=== PATIENT | female | born 2000 | race Caucasian/White ===

== ENCOUNTER 2018-05-07 00:50 | Emergency (ER) | payer OTHER ==
[~2018-05-07 00:50] MED LIST: DXY100 PO
[2018-05-07 01:00] VITALS: TEMP 36.4
--- NOTE | 2018-05-07 01:28 | EMERGENCY ROOM VISIT NOTE ---
History Report prepared by Khurramibvalarie: Pancho Turner Under the Supervision of: Dr. Eulalia Ramon D.O. First contact with patient: 00:54 Chief Complaint: ALCOHOL OVERDOSE Stated Complaint: ALCOHOL OVERDOSE History of Present Illness HPI is limited due to altered mental state secondary to alcohol intoxication. The patient is a 17 year old female who presents to the Emergency Room via EMS due to a recent alcohol intoxication. Nurse states the patient was found in the bathroom of her friend's apartment after going out and drinking for 2 hours. Nurse states the patient was vomiting while she was sleeping in the bathroom. She denies the patient having any other injuries. Source of History: nursing staff History Limited By: AMS (alcohol intoxication) Onset: Recent Position: head Associated Symptoms: + vomiting Review of Systems See HPI for pertinent positives & negatives. A total of 10 systems reviewed and were otherwise negative. Past Medical & Surgical Past medical & surgical history is limited due to altered mental state secondary to alcohol intoxication. Family History Family history is limited due to altered mental state secondary to alcohol intoxication. Social History Smoking Status: Never Smoker Occupation Status: [employer] student Current/Historical Medications Unable to Obtain Active Prescriptions or Reported Meds Allergies Coded Allergies: Erythromycin (Verified Allergy, Mild, GI SYMPTOMS, 07/24/17) Penicillins (Verified Allergy, Unknown, RASH, 07/24/17) Physical Exam Vital Signs Date Time Temp Pulse Resp B/P (MAP) Pulse Ox O2 Delivery O2 Flow Rate FiO2 05/07/18 06:39 117 20 119/70 100 05/07/18 06:24 117 20 119/70 100 Room Air 05/07/18 05:01 72 14 100/62 96 Room Air 05/07/18 04:58 73 05/07/18 04:01 84 16 97/57 97 Room Air 05/07/18 03:01 87 19 118/72 99 Room Air 05/07/18 02:01 64 15 103/51 98 Room Air 05/07/18 01:02 65 05/07/18 01:01 61 22 113/65 96 05/07/18 01:00 Room Air 05/07/18 01:00 36.4 96 13 133/79 99 Room Air Physical Exam General: Patient is unresponsive and smells of alcohol. HEENT: Head - normocephalic and atraumatic Pupils are equal, round, pinpoint, and nonreactive to light. Extraocular eye muscles are intact, and sclera are anicteric. Nose - moist nasal mucosa without discharge. Neck: Supple; no JVD, nuchal rigidity, cervical lymphadenopathy. Heart: Regular rate and rhythm. There is a normal S1 and S2 with no murmurs, clicks, or gallops appreciated. Lungs: Clear to auscultation bilaterally with no wheezes, rales, or rhonchi. Abdomen: Soft, completely nontender, nondistended, with good bowel sounds. There are no palpable pulsatile masses or hepatosplenomegaly. There is no guarding, rigidity, or rebound noted. Extremities: No evidence of cyanosis, clubbing, or edema. There are easily palpable peripheral pulses. Skin: warm and dry with good turgor and no rashes. Medical Decision & Procedures Laboratory Results 05/07/18 01:32 Test 05/07/18 01:32 Anion Gap 12.0 mmol/L (3-11) Estimated GFR () 115.1 Estimated GFR (Non- 99.3 BUN/Creatinine Ratio 15.1 (10-20) Calcium Level 7.9 mg/dl (8.5-10.1) Ethyl Alcohol mg/dL 233.0 mg/dl (0-3) Laboratory results per my review. ED Course 0058: Past medical records reviewed. The patient was evaluated in room B12B. A complete history and physical exam was performed. The patient was placed in the prone position to avoid aspiration. They were observed on the youth nutritional monitor and pulse oximeter. Labs were drawn as above 0323: Patient is sleeping with stable vitals. 0623: Patient is sleeping with stable vitals. 0630: The nursing staff were able to arouse the patient. Upon reevaluation, the patient is fully awake. I went over the risks and hazards of such excessive alcohol use with her. I discussed findings and results with her. She verbalized agreement of the treatment plan. She was discharged home. Medical Decision The patient is a 17 year old female who presents to the ED with recent alcohol overdose. Differential diagnosis includes alcohol overdose, drug intoxication, hypoglycemia, and head injury. Lab results show alcohol = 233, glucose = 103, and potassium = 3.4. The patient was brought to the emergency department after consuming too much alcohol. There were no obvious signs of trauma or complaints of pain. They were observed closely throughout the night and remained stable while here in the ER. The patient was allowed time to sober up prior to discharge. I had a conversation with the patient about the hazards of such excessive alcohol use. Medication Reconcilliation Current Medication List: was personally reviewed by me Blood Pressure Screening Patient's blood pressure: Normal blood pressure Blood pressure disposition: Did not require urgent referral Impression Primary Impression: Alcohol overdose Scribe Attestation The scribe's documentation has been prepared under my direction and personally reviewed by me in its entirety. I confirm that the note above accurately reflects all work, treatment, procedures, and medical decision making performed by me. Departure Information Dispostion Home / Self-Care Prescriptions Unable to Obtain Active Prescriptions or Reported Meds Referrals No Doctor, Assigned (PCP) Forms HOME CARE DOCUMENTATION FORM, IMPORTANT VISIT INFORMATION Patient Instructions ED Overdose Alcohol, [facility]: [employer] Students and Alcohol Related Visits, My [facility] Additional Instructions Avoid such excessive alcohol use in the future. Tylenol 650 mg every 6 hours for headache. Drink plenty of fluids and take a bland diet today. Return to the emergency department for worsening symptoms or any medical concerns. Problem Qualifiers Primary Impression: Alcohol overdose Encounter type: initial encounter Injury intent: accidental or unintentional Qualified Codes: T51.91XA - Toxic effect of unspecified alcohol , accidental (unintentional), initial encounter
[2018-05-07 02:29] LABS: BLOOD UREA NITROGEN 13 mg/dl (7-18); CALCIUM 7.9 mg/dl (8.5-10.1); CARBON DIOXIDE 24 mmol/L (21-32); CREATININE 0.85 mg/dl (0.60-1.20); GLUCOSE 103 mg/dl (70-99); POTASSIUM 3.4 mmol/L (3.5-5.1); SODIUM 142 mmol/L (136-145)
[2018-05-07 06:39] VITALS: BP 119/70; PULSE 117; O2SAT 100
== END 2018-05-07 06:41 | disposition home or self-care (01) ==
LOC: EDBD 00:50 → C.EDB 00:51
DX: T51.91XA Toxic effect of unspecified alcohol, accidental (unintentional), initial encounter (principal); Z88.0 Allergy status to penicillin; Z88.1 Allergy status to other antibiotic agents

== ENCOUNTER 2021-01-21 20:08 | Inpatient (IN) ==
[2021-01-21] MEDS ORDERED: ACETAMINOPHEN 1,000 MG/100 ML VIAL IV STA (20:35)
[2021-01-21] MEDS ORDERED: SODIUM CHLORIDE 0.9% 1000ML 2,000 ML IV ONE (20:35)
[2021-01-21 20:58] LABS: Hematocrit (blood only) 33.8 % (37-47); Hemoglobin 11.6 g/dL (12.0-16.0); Mean Corpuscular Hemoglobin 30.3 pg (25-34); Mean Corpuscular Hgb Conc 34.3 g/dL (32-36); Mean Corpuscular Volume 88.3 fL (80-100); Mean Platelet Volume 11.1 fL (7.4-10.4); Platelet Count 207 K/uL (130-400); RDW Coefficient of Variation 12.8 % (11.5-14.5); RDW Standard Deviation 41.2 fL (36.4-46.3); Red Blood Count 3.83 M/uL (4.2-5.4); White Blood Count 30.05 K/uL (4.8-10.8)
[2021-01-21 21:09] LABS: Basophils # (auto) 0.02 K/uL (0-0.2); Basophils % (auto) 0.1 %; Eosinophils # (auto) 0.01 K/uL (0-0.5); Immature Granulocytes # (auto) 0.17 K/uL (0.00-0.02); Immature Granulocytes % (auto) 0.6 %; Lymphocytes # (auto) 1.08 K/uL (1.2-3.4); Lymphocytes % (auto) 3.6 %; Monocytes # (auto) 0.98 K/uL (0.11-0.59); Monocytes % (auto) 3.3 %; Neutrophils # (auto) 27.79 K/uL (1.4-6.5); Neutrophils % (auto) 92.4 %
[2021-01-21 21:13] LABS: Alanine Aminotransferase 25 U/L (12-78); Albumin Level 3.3 gm/dl (3.4-5.0); Aspartate Aminotransferase 26 U/L (15-37); BUN Creatinine Ratio 8.7 (10-20); Blood Urea Nitrogen 11 mg/dl (7-18); Carbon Dioxide 24 mmol/L (21-32); Chloride 98 mmol/L (98-107); Creatinine Clr Calc Pharmacy 62.5 ml/min; Est GFR (African American) 73.6; Est GFR (Non-African American) 63.5; Glucose 108 mg/dl (70-99); Lipase 38 U/L (73-393); Magnesium 1.9 mg/dl (1.8-2.4); Potassium 3.1 mmol/L (3.5-5.1); Sodium 131 mmol/L (136-145)
[2021-01-21 21:18] LABS: Albumin Globulin Ratio 0.8 (0.9-2); Alkaline Phosphatase 196 U/L (45-117); Bilirubin,Total 1.1 mg/dl (0.2-1); Globulin 4.1 gm/dl (2.5-4.0); Total Protein 7.4 gm/dl (6.4-8.2); Troponin I < 0.015 ng/ml (0-0.045)
[2021-01-21 21:31] LABS: INR 1.1 (0.9-1.1); Partial Thromboplastin Ratio 1.3; Partial Thromboplastin Time 33.5 Seconds (21.0-31.0); Prothrombin Time 11.5 Seconds (9.0-12.0)
[2021-01-21] MEDS ORDERED: OPTIRAY 300 100mL IV ONE (21:46)
[2021-01-21 21:47] LABS: D Dimer 2200 ug/L FEU (0-500)
[2021-01-21] MEDS ORDERED: SODIUM CHLORIDE 0.9% 1000ML 1,000 ML IV ONE (21:53)
[2021-01-21] MEDS ORDERED: AMPICILLIN/SULBACTAM SOD 3,000 MG in 0.9 % SODIUM CHLORIDE 100 ML IV STA (22:23)
[2021-01-21] MEDS ORDERED: CLINDAMYCIN 300 MG in DEXTROSE 5% 50 ML IV ONE (22:23)
[2021-01-21] MEDS ORDERED: CIPROFLOXACIN / D5W 400 MG/200 ML BAG IV STA (22:29)
[2021-01-21] MEDS ORDERED: GENTAMICIN SULFATE 380 MG in DEXTROSE 5% 100 ML IV STA (22:31)
[2021-01-21 22:33] LABS: Appearance Urine Clear (Clear); Bilirubin Urine Negative (Negative); Blood Urine Trace (Negative); Color Urine Yellow; Glucose Urine UA Negative (Negative); Ketones Urine Negative (Negative); Leukocyte Esterase Urine 1+ (Negative); Nitrite Urine Negative (Negative); Protein Urine Trace (Negative); Specific Gravity Urine 1.013 (1.000-1.030); Urobilinogen Urine Negative (Negative); pH Urine 6.5 (4.5-7.5)
[2021-01-21 22:40] LABS: Influenza A virus by PCR Negative (Neg); Influenza B virus by PCR Negative (Neg); RSV by PCR Negative (Neg); SARS CoV2 RNA(COVID-19) InHosp NEGATIVE (Negative)
--- NOTE | 2021-01-21 22:58 | History & Physical Report ---
Date of Service January 21, 2021 Assessment & Plan (1) Pyelonephritis: Christy is a 20-year-old female with a history of Factor V Leiden, status unknown (condition unknown - carrier vs. disease), who presents to [facility] for ongoing chills and night sweats with R-sided abdominal pain, subsequently found to have evidence of right-sided pyelonephritis and a structure within the L adnexa concerning for possible abscess. She is hemodynamically stable. Acute Complicated Pyelonephritis - Clinically reporting chills, night sweats, fevers, right flank pain x 3-4 days - Work-up as follows: - Febrile on arrival with persistent tachycardic, no HoTN - Leukocytosis with left shift, procal to >20 - Evidence of mild ARMANDO, hyponatremia/hypokalemia - CT-A/P demonstrating right pyelonephritis - UA with mild LE - Await UCX, BCX - Cefoxitin + doxy -- should give good gram positive, negative, and atypical coverage in setting of pyelo, possible TOA - Aggressive fluid repletion -- s/p 3L NSS in ED - NSS + 20 mEq KCl @ 125cc/hr - CBC, BMP qAM Possible L Adnexal Abscess - As above: CT-A/P demonstrating rim-enhancing fluid-filled 3.4 x 3.2 cm left adnexal structure with gas-fluid levels concerning for abscess, possible TOA - This was also noted to be adjacent to an additional cystic structure in the L adnexa 4.7 x 3.3 - ?possible ovarian cyst vs. hydrosalpinx - Patient is sexually active, intermittent barrier use. PID-related process should be ruled-out too - Consult BISQUE BRUSHER + general surgery, appreciate insight/recommendations and ?need for intervention - TVUS for further characterization of these structures - GC/CT cultures sent - Cefoxitin+Doxy as above - Symptomatic care Acute Kidney Injury -- mild, Cr 1.21 - Suspect secondary to active pyelonephritis and inflammatory state, possible with prerenal component - bIVF, mIVF as above - BMP qAM Dispo: Med/Surg w/ Tele Code: FULL CODE Diet: mIVF (NSS+20mEq KCl @ 125) // n.p.o. 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 disease), who presents from urgent care for evaluation of ongoing chills for 3 days as well as right-sided abdominal pain. She is accompanied by her roommate. She reports that on Wednesday, she noticed that she was having intermittent chills. As the week and continued, she also developed night sweats and fatigue, as well as a "stitch in her my right side." She attempted taking Tylenol and ibuprofen without much relief of her symptoms. Because of this, she did go to urgent care, anddue to the severity of her symptoms as well as her clinical presentationrecommended she come to the ER for prompt evaluation. She denies recent urinary frequency or urgency. No dysuria. She is sexually active with her boyfriend, who lives in [place]. Intermittently uses barrier contraception. No recent vaginal rashes / discharge / irritation. No history of STIs. LMP approx. 2 weeks ago. She denies nausea, vomiting. Diarrhea x 1 yesterday morning that since resolved. No hematochezia or melena. Socially, patient is a senior here at [employer]. She was starting [employer] when this all started. 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 Denies tobacco use. Social alcohol use. Denies recreational drug use. In the ER, she was noted to be febrile and tachycardic with right-sided RUQ-R flank pain. No CMT; mild vaginal discharge on exam. Leukocytosis to 30 and left shift with elevated procalc. CT-A/P demonstrating right pyelonephritis and rim-enhancing fluid-filled structure in L adnexal with a gas-fluid level c/w abscess, which was noted to be adjacent to smooth oval cystic structure in L adnexa. She was given 3L total of NSS alongside single doses of clindamycin and gentamycin. Allergies Allergy/AdvReac Type Severity Reaction Status Date / Time Penicillins Allergy Severe ANAPHYLAXIS Verified 01/22/21 00:18 erythromycin base Allergy Mild GI SYMPTOMS Verified 01/21/21 23:02 Home Medications Medication Instructions Recorded Confirmed Type Sinus Allergy [place] 2 spray INTRANASAL DAILY PRN 05/04/21 05/04/21 History acetaminophen [Tylenol Extra 1,000 mg PO Q4 PRN 01/21/21 01/21/21 History Strength] ibuprofen [Advil] 400 mg PO Q4 PRN 01/21/21 01/21/21 History Past Med/Surg History Medical History H/O bronchitis Surgical History H/O wisdom tooth extraction S/P adenoidectomy S/P tonsillectomy Family History Other Diabetes Social History Smoking Status: Never smoker Hx Alcohol Use: No Hx Substance Use: No Preferred Language: Romansh Feels Safe at Home: Yes Review of Systems Review of Systems: as per HPI Physical Exam Physical Exam: General: Ill-appearing 20-year-old female who is lying back in her hospital bed upon my arrival. She is fully alert and oriented. She appears in mild distress. HEENT: NCAT. Eyes - Sclera are white, anicteric, and without injection. PERRL. EOMs display full ROM bilaterally. Mouth - MMM with no tonsillar edema or exudates. Cardiac: Tachycardic with regular rhythm; S1 and S2 present with no murmurs, rubs, or gallops. Pulmonary: Good respiratory effort with symmetric expansion of the chest. No use of accessory muscles. Lungs were clear to auscultation bilaterally with no crackles or wheezes. Abdominal: Normoactive bowel sounds. Abdomen was non-distended. TTP appreciated deep within the midaxillary line in the general vicinity of the RUQ/flank, not elsewhere. No masses. No rebound or guarding. No hepatomegaly or splenomegaly. Extremities: Upper and lower extremities are warm and well perfused. Radial and dorsalis pedis pulses were 2+ b/l. Capillary refill assessed in UE was < 3 sec. : Deferred given previous exam in ER Results & Data Results & Data ([facility]) Vital Signs (Past 12 Hours) Vital Signs Temp Pulse Resp BP Pulse Ox 01/21/21 22:10 125 H 23 114/67 100 01/21/21 22:08 23 01/21/21 21:31 120 H 15 01/21/21 21:30 124 H 17 112/78 01/21/21 21:16 22 01/21/21 21:11 125 H 18 120/75 01/21/21 21:00 123 H 18 01/21/21 20:48 120 H 16 100 01/21/21 20:34 98 01/21/21 20:16 37.7 C H 148 H 20 128/89 94 Laboratory Results Lab Results 01/21/21 01/21/21 01/21/21 Range/Units 20:30 20:30 20:30 WBC 30.05 H* (4.8-10.8) K/uL RBC 3.83 L (4.2-5.4) M/uL Hgb 11.6 L (12.0-16.0) g/dL Hct 33.8 L (37-47) % MCV 88.3 (80-100) fL MCH 30.3 (25-34) pg MCHC 34.3 (32-36) g/dL RDW Std Deviation 41.2 (36.4-46.3) fL RDW Coeff of Lizzie 12.8 (11.5-14.5) % Plt Count 207 (130-400) K/uL MPV 11.1 H (7.4-10.4) fL Immature Gran % (Auto) 0.6 % Neut % (Auto) 92.4 % Lymph % (Auto) 3.6 % [place] % (Auto) 3.3 % Eos % (Auto) 0.0 % Baso % (Auto) 0.1 % Neut # (Auto) 27.79 H (1.4-6.5) K/uL Lymph # (Auto) 1.08 L (1.2-3.4) K/uL [place] # (Auto) 0.98 H (0.11-0.59) K/uL Eos # (Auto) 0.01 (0-0.5) K/uL Baso # (Auto) 0.02 (0-0.2) K/uL Immature Gran # (Auto) 0.17 H (0.00-0.02) K/uL PT (9.0-12.0) Seconds INR (0.9-1.1) APTT (21.0-31.0) Seconds PTT Ratio D-Dimer (0-500) ug/L FEU Sodium 131 L (136-145) mmol/L Potassium 3.1 L (3.5-5.1) mmol/L Chloride 98 (98-107) mmol/L Carbon Dioxide 24 (21-32) mmol/L Anion Gap 8.0 (3-11) BUN 11 (7-18) mg/dl Creatinine 1.21 H (0.6-1.2) mg/dl Est Cr Clr Drug Dosing 62.5 ml/min Est GFR ( Amer) 73.6 Est GFR (Non-Af Amer) 63.5 BUN/Creatinine Ratio 8.7 L (10-20) Glucose 108 H (70-99) mg/dl Lactate (0.4-2.0) mmol/L Calcium 9.0 (8.5-10.1) mg/dl Magnesium 1.9 (1.8-2.4) mg/dl Total Bilirubin 1.1 H (0.2-1) mg/dl AST 26 (15-37) U/L ALT 25 (12-78) U/L Alkaline Phosphatase 196 H (45-117) U/L Troponin I < 0.015 (0-0.045) ng/ml Total Protein 7.4 (6.4-8.2) gm/dl Albumin 3.3 L (3.4-5.0) gm/dl Globulin 4.1 H (2.5-4.0) gm/dl Albumin/Globulin Ratio 0.8 L (0.9-2) Lipase 38 L (73-393) U/L Procalcitonin 12.49 H (0-0.5) ng/ml Urine Color Urine Appearance (Clear) Urine pH (4.5-7.5) Ur Specific [place] (1.000-1.030) Urine Protein (Negative) Urine Glucose (UA) (Negative) Urine Ketones (Negative) Urine Blood (Negative) Urine Nitrite (Negative) Urine Bilirubin (Negative) Urine Urobilinogen (Negative) Ur Leukocyte Esterase (Negative) Urine WBC (Auto) (0-5) /hpf Urine RBC (Auto) (0-4) /hpf U Hyaline Cast (Auto) (0-5) /lpf U Epithel Cells (Auto) (0-5) /lpf Urine Bacteria (Auto) (Negative) Urine Test (Negative) COVID-19 Eval Order SARS-CoV-2 (PCR) (Negative) Influenza Type A (PCR) (Neg) Influenza Type B (PCR) (Neg) RSV (RT-PCR) (Neg) 01/21/21 01/21/21 01/21/21 Range/Units 20:30 20:58 21:40 WBC (4.8-10.8) K/uL RBC (4.2-5.4) M/uL Hgb (12.0-16.0) g/dL Hct (37-47) % MCV (80-100) fL MCH (25-34) pg MCHC (32-36) g/dL RDW Std Deviation (36.4-46.3) fL RDW Coeff of Lizzie (11.5-14.5) % Plt Count (130-400) K/uL MPV (7.4-10.4) fL Immature Gran % (Auto) % Neut % (Auto) % Lymph % (Auto) % [place] % (Auto) % Eos % (Auto) % Baso % (Auto) % Neut # (Auto) (1.4-6.5) K/uL Lymph # (Auto) (1.2-3.4) K/uL [place] # (Auto) (0.11-0.59) K/uL Eos # (Auto) (0-0.5) K/uL Baso # (Auto) (0-0.2) K/uL Immature Gran # (Auto) (0.00-0.02) K/uL PT 11.5 (9.0-12.0) Seconds INR 1.1 (0.9-1.1) APTT 33.5 H (21.0-31.0) Seconds PTT Ratio 1.3 D-Dimer 2200 H* (0-500) ug/L FEU Sodium (136-145) mmol/L Potassium (3.5-5.1) mmol/L Chloride (98-107) mmol/L Carbon Dioxide (21-32) mmol/L Anion Gap (3-11) BUN (7-18) mg/dl Creatinine (0.6-1.2) mg/dl Est Cr Clr Drug Dosing ml/min Est GFR ( Amer) Est GFR (Non-Af Amer) BUN/Creatinine Ratio (10-20) Glucose (70-99) mg/dl Lactate 1.9 (0.4-2.0) mmol/L Calcium (8.5-10.1) mg/dl Magnesium (1.8-2.4) mg/dl Total Bilirubin (0.2-1) mg/dl AST (15-37) U/L ALT (12-78) U/L Alkaline Phosphatase (45-117) U/L Troponin I (0-0.045) ng/ml Total Protein (6.4-8.2) gm/dl Albumin (3.4-5.0) gm/dl Globulin (2.5-4.0) gm/dl Albumin/Globulin Ratio (0.9-2) Lipase (73-393) U/L Procalcitonin (0-0.5) ng/ml Urine Color Urine Appearance (Clear) Urine pH (4.5-7.5) Ur Specific [place] (1.000-1.030) Urine Protein (Negative) Urine Glucose (UA) (Negative) Urine Ketones (Negative) Urine Blood (Negative) Urine Nitrite (Negative) Urine Bilirubin (Negative) Urine Urobilinogen (Negative) Ur Leukocyte Esterase (Negative) Urine WBC (Auto) (0-5) /hpf Urine RBC (Auto) (0-4) /hpf U Hyaline Cast (Auto) (0-5) /lpf U Epithel Cells (Auto) (0-5) /lpf Urine Bacteria (Auto) (Negative) Urine Test (Negative) COVID-19 Eval Order CovFluRsv at [facility] SARS-CoV-2 (PCR) (Negative) Influenza Type A (PCR) (Neg) Influenza Type B (PCR) (Neg) RSV (RT-PCR) (Neg) 01/21/21 01/21/21 01/21/21 Range/Units 21:40 22:12 22:12 WBC (4.8-10.8) K/uL RBC (4.2-5.4) M/uL Hgb (12.0-16.0) g/dL Hct (37-47) % MCV (80-100) fL MCH (25-34) pg MCHC (32-36) g/dL RDW Std Deviation (36.4-46.3) fL RDW Coeff of Lizzie (11.5-14.5) % Plt Count (130-400) K/uL MPV (7.4-10.4) fL Immature Gran % (Auto) % Neut % (Auto) % Lymph % (Auto) % [place] % (Auto) % Eos % (Auto) % Baso % (Auto) % Neut # (Auto) (1.4-6.5) K/uL Lymph # (Auto) (1.2-3.4) K/uL [place] # (Auto) (0.11-0.59) K/uL Eos # (Auto) (0-0.5) K/uL Baso # (Auto) (0-0.2) K/uL Immature Gran # (Auto) (0.00-0.02) K/uL PT (9.0-12.0) Seconds INR (0.9-1.1) APTT (21.0-31.0) Seconds PTT Ratio D-Dimer (0-500) ug/L FEU Sodium (136-145) mmol/L Potassium (3.5-5.1) mmol/L Chloride (98-107) mmol/L Carbon Dioxide (21-32) mmol/L Anion Gap (3-11) BUN (7-18) mg/dl Creatinine (0.6-1.2) mg/dl Est Cr Clr Drug Dosing ml/min Est GFR ( Amer) Est GFR (Non-Af Amer) BUN/Creatinine Ratio (10-20) Glucose (70-99) mg/dl Lactate (0.4-2.0) mmol/L Calcium (8.5-10.1) mg/dl Magnesium (1.8-2.4) mg/dl Total Bilirubin (0.2-1) mg/dl AST (15-37) U/L ALT (12-78) U/L Alkaline Phosphatase (45-117) U/L Troponin I (0-0.045) ng/ml Total Protein (6.4-8.2) gm/dl Albumin (3.4-5.0) gm/dl Globulin (2.5-4.0) gm/dl Albumin/Globulin Ratio (0.9-2) Lipase (73-393) U/L Procalcitonin (0-0.5) ng/ml Urine Color Yellow Urine Appearance Clear (Clear) Urine pH 6.5 (4.5-7.5) Ur Specific [place] 1.013 (1.000-1.030) Urine Protein Trace H (Negative) Urine Glucose (UA) Negative (Negative) Urine Ketones Negative (Negative) Urine Blood Trace H (Negative) Urine Nitrite Negative (Negative) Urine Bilirubin Negative (Negative) Urine Urobilinogen Negative (Negative) Ur Leukocyte Esterase 1+ H (Negative) Urine WBC (Auto) 5-10 H (0-5) /hpf Urine RBC (Auto) 0-4 (0-4) /hpf U Hyaline Cast (Auto) 0 (0-5) /lpf U Epithel Cells (Auto) 5-10 H (0-5) /lpf Urine Bacteria (Auto) Negative (Negative) Urine Test Negative (Negative) COVID-19 Eval Order SARS-CoV-2 (PCR) NEGATIVE (Negative) Influenza Type A (PCR) Negative (Neg) Influenza Type B (PCR) Negative (Neg) RSV (RT-PCR) Negative (Neg) Supervising Physician Co-Signing Physician Notes Patient seen and examined, chart reviewed, case discussed with Dr. Lomeli and I agree with his assessment and plan as above. Briefly, patient is a 20yo female presenting with right abdominal pain - found with pyelonephritis. Also found to have collection suggestive of left tuboovarian abscess. Patient has no left sided abdominal complaints Patient febrile, tachycardic, ill in appearance HEENT- NC/AT, PERRL, EOMI, Neck supple Heart - +S1/S2, regular, tachycardic, no m/r/g Lungs - CTA Abd - +BS, soft, NT/ND, no rebound/guarding/peritoneal signs Ext - Warm, well perfused, no clubbing/cyanosis or edema Labs and images reviewed Significant for leukocytosis with WBC=30.05 with neutrophil predominance, bands and mild lymphopenia Normochromic/normocytic anemia with Hgb=11.6, Hct=33.8 Otcmfw=0180 Jv=214, K=3.1, Cr=1.21 with prior value of 0.85 in 04/2018 TB=988, TBili=1.1 Procalcitonin=12.49 Cultures for Chlamydia and Gonorrhea pending Assessment/Plan - right pyelonephritis, ?left tuboovarian abscess. Patient tachycardic with elevated WBC and Procalcitonin. Abdomen is non-surgical -Admit to medical with telemetry -Follow cultures -General Surgery and Gynecology consultations appreciated -Pain control, Tylenol as needed for fever -Mefoxitin and Doxycycline for now -Remainder of plan as above Resident Activity Tracking Resident Involvement: Resident Care Provided Care Provided: Adult Hospital Medicine
[2021-01-21 23:00] LABS: Bacteria Urine Automated Negative (Negative); Cast Urine Automated 0 /lpf (0-5); RBC Urine Automated 0-4 /hpf (0-4)
--- NOTE | 2021-01-22 00:18 | Surgery Consultation ---
Date of Consultation January 22, 2021 Assessment & Plan (1) Pyelonephritis: Patient is being admitted to the hospital on the medical service. We recommend proceeding as follows: Continue IV fluids for hydration Provide analgesics Provide antiemetics -Blood cultures have been sent we will follow for these results -Urine culture has been ordered and we will follow for the results of this Continue antibiotics. In the emergency department she has already received doses of Cipro, gentamicin, and clindamycin. Patient reportedly had a negative test at [facility]. After discussion with the treating emergency room physician is planning on repeating this test. It appears as though most of patient's symptomatology is derived from the noted pyelonephritis on CT scan. However, she does have a noted fluid collection near the left adnexa which is concerning for either tubo-ovarian or diverticular abscess. Based on the patient's age and remaining CT scan findings I would favor tubo-ovarian abscess. I did discuss with the treating emergency room physician and he has consulted [facility] for further recommendations. He has also obtained a pelvic ultrasound to further characterize this collection and we will follow for the results of this. Due to the size of this questionable abscess, the treatment would be antibiotics for the present time following the patient clinically as well as following serial radiographic studies to see if clinical improvement is noted. If the patient clinically deteriorates or if future imaging the questionable abscess is not improving or getting larger consideration can be given to drainage either by interventional radiology or surgically at that time. We will continue to follow while the patient is hospitalized Supervising Physician Co-Signing Physician Notes Patient seen and examined on a.m. rounds, labs and imaging reviewed, agree with above. 20-year-old female with fevers and abdominal pain with flank pain, admitted with pyelonephritis. On her CT scan overnight there was question of an abscess in her pelvis that may be related to a tubo-ovarian abscess versus diverticulitis. She is never had any evidence of diverticulitis in the past and does not have any diverticula on her CT scan. She was admitted to the medicine service and was treated with antibiotics. Rosalva has seen her. On exam she is afebrile with stable vitals. She was febrile yesterday. Her abdomen is soft, nontender, nondistended. Labs with persistent leukocytosis to 32,000, slightly elevated creatinine. I personally reviewed and interpreted the CT scan I feel this likely represents a tubo-ovarian abscess along with another ovarian cyst in the pelvis. The formal read from our radiologist agree that it is a tubo-ovarian abscess. Recommend continued antibiotics and management of tubo-ovarian abscess per gynecology, management of pyelonephritis per medicine. General surgery will sign off, call with questions or concerns. History of Present Illness Reason for Consultation: Possible diverticular abscess History of Present Illness This is a 20-year-old female who presented to the [facility] emergency department secondary to a history of not feeling well for 3 days. Over this time. The patient has felt feverish, has had chills and sweats, reports nausea without vomiting, and a poor appetite. The patient denies any dysuria or hematuria. She also denies any urinary frequency. He denies any diarrhea. She does note some sharp pain in her right flank that does not radiate. She does not report any modifying factors related to this pain. He denies any previous surgeries on her abdomen. She notes that her last menstrual period ended about 2 weeks ago and does not feel that her current symptoms were related to that. Because of her symptoms [facility] and after their evaluation she was prompted to report to [facility] emergency department. In the emergency department patient did have labs and imaging which I independently reviewed. Labs included a CBC where her white blood cell count was noted to be 30,000. Her hemoglobin and hematocrit were 11.6 and 33.8. Platelet count was noted to be within normal range. A chemistry profile showed her sodium and potassium are 131 3.1 respectively. Her BUN was normal and she had a creatinine of 1.2. Patient did undergo a CT scan of her abdomen and pelvis. The scan showed concern for a right-sided pyelonephritis. The scan also demonstrated 3.4 x 3.2 cm enhancing fluid collection near the left adnexa concerning for either a tubo-ovarian or a diverticular abscess. There is also a 4.7 x 3.3 cm cystic structure in the left adnexa near the previously noted fluid collection. There is no evidence of small bowel obstruction or appendicitis on the study. CT scan of the chest was performed that showed no evidence of pulmonary emboli or pneumonia. A chest x-ray also demonstrated no evidence of pneumonia. A Covid test was performed and was noted to be negative. Urinalysis showed 5-10 white blood cells per high-power field, 1+ leukocyte Estrace, and no bacteria. Patient reportedly had a negative test at [facility] earlier today. At the time of my interview the patient was resting in bed she was in no distres s Allergies Allergy/AdvReac Type Severity Reaction Status Date / Time Penicillins Allergy Severe ANAPHYLAXIS Verified 01/22/21 00:18 erythromycin base AdvReac Mild GI SYMPTOMS Verified 01/22/21 02:41 Home Medications Medication Instructions Recorded Confirmed Type Sinus Allergy [place] 2 spray INTRANASAL DAILY PRN 01/21/21 01/21/21 History acetaminophen [Tylenol Extra 1,000 mg PO Q4 PRN 01/21/21 01/21/21 History Strength] ibuprofen [Advil] 400 mg PO Q4 PRN 01/21/21 01/21/21 History Patient History Medical History H/O bronchitis Surgical History H/O wisdom tooth extraction S/P adenoidectomy S/P tonsillectomy Family History Other Diabetes Social History Smoking Status: Never smoker Hx Alcohol Use: Yes Hx Substance Use: No Preferred Language: Niue[place] Beliefs That Will Affect Care: None Current Living Situation Comment: lives with roomate at college Feels Safe at Home: Yes Assistive Devices: None Review of Systems Constitutional: + fever, + chills, + sweats, + body aches and + anorexia Eyes: no diplopia Ear, Nose, Mouth, Throat: no ear pain Respiratory: no cough and no dyspnea Cardiovascular: no chest pain Gastrointestinal: + nausea; no abdominal pain, no vomiting and no diarrh ea/loose stools Genitourinary: + flank pain (Right sided); no dysuria and no urinary frequency Musculoskeletal: + back pain (Right sided flank pain) Integumentary: no rash Neurologic: no localized weakness Physical Exam Constitutional: well developed and well nourished; no acute distress Eyes: no conjunctival abnormality ENMT: Ears: no hearing impairment Neck: trachea midline Respiratory: normal respiratory effort; no respiratory distress and no labored breathing Cardiovascular: Rate/Rhythm: regular rate and regular rhythm Gastrointestinal (Abdomen): Patient's abdomen is soft and nondistended. Bowel sounds are positive. There is no rebound tenderness or guarding. There is no pain with palpation in any quadrant of the abdomen. Musculoskeletal: No calf tenderness Skin: no rashes, warm and dry Neurologic: moves all extremities Psychiatric: Orientation: alert and oriented x 3 Affect: + anxious affect Genitourinary: + CVA tenderness (Right sided tenderness noted with percussion) Results & Data ([facility]) Vital Signs (Past 12 Hours) Vital Signs Temp Pulse Resp BP Pulse Ox 01/22/21 00:08 137 H 22 128/93 93 01/21/21 23:00 37.5 C 121 H 22 119/60 100 01/21/21 22:30 128 H 22 114/75 100 01/21/21 22:10 125 H 23 114/67 100 01/21/21 22:08 23 01/21/21 21:31 120 H 15 100 01/21/21 21:30 124 H 17 112/78 100 01/21/21 21:16 22 100 01/21/21 21:11 125 H 18 120/75 100 01/21/21 21:00 123 H 18 100 01/21/21 20:48 120 H 16 100 01/21/21 20:34 98 01/21/21 20:16 37.7 C H 148 H 20 128/89 94 PG Care Time/CCT Total # of Minutes Spent Total Time Spent with Patient: Total time spent is greater than 50% in coordination of care (as documented) at patient's floor/unit and/or counseling patient: Coding Level of Care Code 11962 Inpt Consult Level 5 Diagnoses Pyelonephritis N12
[2021-01-22 00:52] LABS: Pregnancy Test, Urine Negative (Negative)
--- NOTE | 2021-01-22 01:03 | Emergency Department Note ---
History of Present Illness General Chief Complaint: Illness Stated Complaint: ABDOMINAL PAIN, HEADACHE, FEVER Time Seen by Provider: 01/21/21 20:26 History of Present Illness Provider Complaint: abdominal pain Onset (ago): 3 day(s) Pain Consistency: constant Location: RUQ Radiation: none Severity: moderate Current Pain Intensity: 6 Quality: + stabbing, + aching and + sharp Relieved By: + nothing Exacerbated By: + nothing Context: no foreign travel, no possible food poisoning, no recent antibiotic use, no recent surgery/procedure and no history of similar episodes Associated Symptoms: + nausea and + fever; no vomiting, no chills, no constipation, no hematemesis, no hematochezia, no melena, no hematuria, no anorexia, no syncope, no headache, no neck pain, no back pain, no chest pain and no breathing difficulty Related Data Patient Confirmed : No Home Medications Medication Instructions Recorded Confirmed Type Sinus Allergy [place] 2 spray INTRANASAL DAILY PRN 01/21/21 01/21/21 History acetaminophen [Tylenol Extra 1,000 mg PO Q4 PRN 01/21/21 01/21/21 History Strength] ibuprofen [Advil] 400 mg PO Q4 PRN 01/21/21 01/21/21 History Allergies Allergy/AdvReac Type Severity Reaction Status Date / Time Penicillins Allergy Severe ANAPHYLAXIS Verified 01/22/21 00:18 erythromycin base Allergy Mild GI SYMPTOMS Verified 01/21/21 23:02 Past Med/Surg History Medical History H/O bronchitis Surgical History H/O wisdom tooth extraction S/P adenoidectomy S/P tonsillectomy Family History Other Diabetes Social History Smoking Status: Never smoker Hx Alcohol Use: No Hx Substance Use: No Preferred Language: Bengali Feels Safe at Home: Yes Review of Systems A total of 10 systems reviewed and were otherwise negative Physical Exam Vital Signs: Vital Signs - 24 hr 01/21/21 20:16 01/21/21 20:34 01/21/21 20:48 Temperature 37.7 C H Temperature Source Temporal Artery Sc an Pulse Rate 148 H 120 H Pulse Rate from Sp O2 Sensor 120 H Respiratory Rate 20 16 Respiratory Effort / Characteristics Non-Labored Respiratory Depth Normal Blood Pressure 128/89 Blood Pressure Minoo n 102 Pulse Oximetry 94 98 100 Oxygen Delivery Me thod Room Air Room Air Sepsis Recent Feve r Within 48 Hours Yes Sepsis New/Unexpla ined Change in Men jaimee Status No Sepsis Action Take n by Nursing No Action Required 01/21/21 21:00 01/21/21 21:11 01/21/21 21:16 Temperature Temperature Source Pulse Rate 123 H 125 H Pulse Rate from Sp O2 Sensor 123 H 124 H Respiratory Rate 18 18 22 Respiratory Effort / Characteristics Respiratory Depth Blood Pressure 120/75 Blood Pressure Minoo n 90 Pulse Oximetry 100 100 100 Oxygen Delivery Me thod Room Air Sepsis Recent Feve r Within 48 Hours Sepsis New/Unexpla ined Change in Men jaimee Status Sepsis Action Take n by Nursing 01/21/21 21:30 01/21/21 21:31 01/21/21 22:08 Temperature Temperature Source Pulse Rate 124 H 120 H Pulse Rate from Sp O2 Sensor 122 H 122 H Respiratory Rate 17 15 23 Respiratory Effort / Characteristics Respiratory Depth Blood Pressure 112/78 Blood Pressure Minoo n 89 Pulse Oximetry 100 100 Oxygen Delivery Me thod Sepsis Recent Feve r Within 48 Hours Sepsis New/Unexpla ined Change in Men jaimee Status Sepsis Action Take n by Nursing 01/21/21 22:10 01/21/21 22:30 01/21/21 23:00 Temperature 37.5 C Temperature Source Oral Pulse Rate 125 H 128 H 121 H Pulse Rate from Sp O2 Sensor 126 H 128 H 123 H Respiratory Rate 23 22 22 Respiratory Effort / Characteristics Respiratory Depth Blood Pressure 114/67 114/75 119/60 Blood Pressure Minoo n 82 88 79 Pulse Oximetry 100 100 100 Oxygen Delivery Me thod Room Air Room Air Sepsis Recent Feve r Within 48 Hours Sepsis New/Unexpla ined Change in Men jaimee Status Sepsis Action Take n by Nursing 01/22/21 00:08 01/22/21 00:13 01/22/21 00:31 Temperature 37.4 C Temperature Source Oral Pulse Rate 137 H 118 H Pulse Rate from Sp O2 Sensor 138 H 118 H Respiratory Rate 22 19 Respiratory Effort / Characteristics Respiratory Depth Blood Pressure 128/93 111/54 L Blood Pressure Minoo n 104 73 Pulse Oximetry 93 99 Oxygen Delivery Me thod Room Air Room Air Sepsis Recent Feve r Within 48 Hours Sepsis New/Unexpla ined Change in Men jaimee Status Sepsis Action Take n by Nursing Physical Exam: Physical Exam GENERAL: She is oriented to person, place, and time. She appears well-developed and well-nourished. She does not appear distressed. HENT: Exam performed. -Head: Normocephalic and atraumatic. -Right Ear: External ear normal. No mastoid tenderness. -Left Ear: External ear normal. No mastoid tenderness. -Mouth/Throat: The oropharynx is clear and moist. No trismus in the jaw. No dental abscesses or uvula swelling. No oropharyngeal exudate or tonsillar abscesses. EYES: Conjunctivae and EOM are normal. Pupils are equal, round, and reactive to light. Right eye exhibits no discharge. Left eye exhibits no discharge. No scleral icterus. NECK: Normal range of motion. Neck supple. No JVD present. No spinous process tenderness present. No carotid bruit present. No rigidity. No tracheal deviation and normal range of motion present. No Brudzinski's sign and no Kernig's sign noted. CV: Tachycardic rate, regular rhythm, normal heart sounds and intact distal pulses. There is no peripheral edema. Palpable radial pulses bue. PULM/CHEST: Effort normal and breath sounds normal. No respiratory distress. No stridor. She has no wheezes. She has no rales. -Chest Wall: She exhibits no tenderness. ABD: The abdomen is soft. Bowel sounds are normal. She has no distension. No mass is present. There is tenderness to palpation of the right upper quadrant and epigastric area. There is no rebound, no guarding, no Butler's sign and no tenderness at McBurney's point. Rovsig negative. Right-sided CVA tenderness. MUSC/SKEL: Normal range of motion. There is no peripheral edema, tenderness or deformity. LYMPH: No cervical adenopathy. NEURO: She is alert and oriented to person, place, and time. She has normal strength. No cranial nerve deficit or sensory deficit. Coordination and gait normal. GCS eye subscore is 4. GCS verbal subscore is 5. GCS motor subscore is 6. Cerebellar tests wnl. SKIN: Skin is warm and dry. She is not diaphoretic. PSYCH: She has a normal mood and affect. Behavior is normal. Judgment and thought content normal. Course Course 2025: The patient was evaluated in room C8. A complete history and physical exam was performed Cardiac monitoring: An order was placed for continuous cardiac monitoring. The monitor shows a rate of 140 with sinus tachycardia rhythm Sepsis protocols were initiated. [facility] and had a negative and Covid test there. 2100: Patient has a leukocytosis of 30. Will order CT of the abdomen. 0: D-dimer elevated. Will order CTA of the chest. 2240: CT shows right-sided pyelonephritis. CT also shows a 3.4 x 3.2 cm ring- enhancing fluid-filled structure in the left adnexa with a gas fluid level consistent with abscess, differential included TOA versus diverticular abscess. There is also mention of a 4.7 x 3.3 cm oval cystic structure in the left adnexa which may represent hydrosalpinx. Ultrasound ordered to further differentiate this. Discussed with Dr. Estrada on-call ENVIRONMENTAL INTERN for [facility] [place] states he can evaluate the patient. We will start the patient on antibiotics for possible TOA as well as pyelonephritis. Patient will be ordered Cipro IV, Unasyn IV, gentamicin IV, and clindamycin IV. General surgery will also be consulted. On reassessment, the patient is not having any pain in her left lower quadrant. She is having pain on the right side in the right upper quadrant and has right CVA tenderness. We will plan on admitting the patient to the medicine service. Patient states she is sexually active with only one partner. She states she is not concerned for STD. Pelvic exam conducted with nursing female hearing and speech assistant Paulina. There is vaginal discharge. No cervical motion tenderness. No adnexal tenderness. Cervical cultures collected and will be sent to lab. I did offer to discuss the patient's case with her parents /guardians but she declined at this time. 2315: Dr. Timothy EDMOND hospitalist will evaluate the patient for admission. 0041: Vital signs improved. General surgery Benjamin Madrigal evaluated the patient and he discussed the case with his attending Dr. Pascal and they do not feel that the patient has a diverticular abscess at this time, they believe that the patient has a tubo-ovarian abscess. Pelvic ultrasound showed a elongated 6.4 x 3.3 cm cyst in the left adnexa. Complex cystic structure in the left ovary measuring 4 x 2.9 x 3.8 cm containing gas which appeared to be a tubo-ovarian abscess. Patient states she has a history of rash and difficulty breathing when she received amoxicillin as a child. We will hold Unasyn for this reason. I did discuss with Dr. Estrada who stated that the gentamicin and clindamycin should suffice and no additional coverage should be needed for TOA. He agrees with the admission to medicine and states he will evaluate the patient in the morning. Medicine team is aware. Dr. Estrada states there is no need for surgical intervention on the patient at this time with the size of the abscess. Administered Medications Discontinued Medications Acetaminophen (Ofirmev) 1,000 mg in 100 mls @ 400 mls/hr IV NOW STA Stop: 01/21/21 20:49 Last Infusion: 01/21/21 21:56 Dose: 0 mls/hr Documented by: [id number] Admin: 01/21/21 21:36 Dose: 400 mls/hr Documented by: [id number] Sodium Chloride (Nss 1000ml) 2,000 mls @ 999 mls/hr IV .Q2H1M ONE Stop: 01/21/21 22:35 Last Infusion: 01/22/21 00:07 Dose: 0 mls/hr Documented by: [id number] Admin: 01/21/21 21:36 Dose: 999 mls/hr Documented by: [id number] Sodium Chloride (Nss 1000ml) 1,000 mls @ 999 mls/hr IV .Q1H1M ONE Stop: 01/21/21 22:53 Last Infusion: 01/22/21 00:07 Dose: 0 mls/hr Documented by: [id number] Admin: 01/21/21 22:59 Dose: 999 mls/hr Documented by: [id number] Clindamycin Phosphate 300 mg/ (Dextrose) 52 mls @ 100 mls/hr IV ONE ONE Stop: 01/21/21 22:54 Last Infusion: 01/22/21 00:39 Dose: 0 mls/hr Documented by: [id number] Admin: 01/21/21 23:49 Dose: 100 mls/hr Documented by: [id number] Ampicillin Sodium/Sulbactam Sodium 3,000 mg/ Sodium Chloride 108 mls @ 200 mls/hr IV NOW STA; Protocol Stop: 01/22/21 00:01 Last Admin: 01/22/21 00:04 Dose: Not Given Documented by: [id number] Ciprofloxacin (Cipro / D5w) 400 mg in 200 mls @ 100 mls/hr IV ONE STA; Protocol Stop: 01/22/21 00:28 Last Admin: 01/22/21 00:43 Dose: 100 mls/hr Documented by: [id number] Gentamicin Sulfate 380 mg/ (Dextrose) 109.5 mls @ 102 mls/hr IV ONE STA Stop: 01/21/21 23:35 Last Admin: 01/22/21 00:03 Dose: 102 mls/hr Documented by: [id number] Ioversol (Optiray 300 100ml) 86 ml IV ONCE ONE Stop: 01/21/21 21:47 Last Admin: 01/21/21 21:46 Dose: 86 ml Documented by: [id number] Medical Decision Making Laboratory Data Result diagrams: 01/21/21 20:30 01/21/21 20:30 Lab Results 01/21/21 01/21/21 01/21/21 Range/Units 20:30 20:30 20:30 WBC 30.05 H* (4.8-10.8) K/uL RBC 3.83 L (4.2-5.4) M/uL Hgb 11.6 L (12.0-16.0) g/dL Hct 33.8 L (37-47) % MCV 88.3 (80-100) fL MCH 30.3 (25-34) pg MCHC 34.3 (32-36) g/dL RDW Std Deviation 41.2 (36.4-46.3) fL RDW Coeff of Lizzie 12.8 (11.5-14.5) % Plt Count 207 (130-400) K/uL MPV 11.1 H (7.4-10.4) fL Immature Gran % (Auto) 0.6 % Neut % (Auto) 92.4 % Lymph % (Auto) 3.6 % [place] % (Auto) 3.3 % Eos % (Auto) 0.0 % Baso % (Auto) 0.1 % Neut # (Auto) 27.79 H (1.4-6.5) K/uL Lymph # (Auto) 1.08 L (1.2-3.4) K/uL [place] # (Auto) 0.98 H (0.11-0.59) K/uL Eos # (Auto) 0.01 (0-0.5) K/uL Baso # (Auto) 0.02 (0-0.2) K/uL Immature Gran # (Auto) 0.17 H (0.00-0.02) K/uL PT (9.0-12.0) Seconds INR (0.9-1.1) APTT (21.0-31.0) Seconds PTT Ratio D-Dimer (0-500) ug/L FEU Sodium 131 L (136-145) mmol/L Potassium 3.1 L (3.5-5.1) mmol/L Chloride 98 (98-107) mmol/L Carbon Dioxide 24 (21-32) mmol/L Anion Gap 8.0 (3-11) BUN 11 (7-18) mg/dl Creatinine 1.21 H (0.6-1.2) mg/dl Est Cr Clr Drug Dosing 62.5 ml/min Est GFR ( Amer) 73.6 Est GFR (Non-Af Amer) 63.5 BUN/Creatinine Ratio 8.7 L (10-20) Glucose 108 H (70-99) mg/dl Lactate (0.4-2.0) mmol/L Calcium 9.0 (8.5-10.1) mg/dl Magnesium 1.9 (1.8-2.4) mg/dl Total Bilirubin 1.1 H (0.2-1) mg/dl AST 26 (15-37) U/L ALT 25 (12-78) U/L Alkaline Phosphatase 196 H (45-117) U/L Troponin I < 0.015 (0-0.045) ng/ml Total Protein 7.4 (6.4-8.2) gm/dl Albumin 3.3 L (3.4-5.0) gm/dl Globulin 4.1 H (2.5-4.0) gm/dl Albumin/Globulin Ratio 0.8 L (0.9-2) Lipase 38 L (73-393) U/L Procalcitonin 12.49 H (0-0.5) ng/ml Urine Color Urine Appearance (Clear) Urine pH (4.5-7.5) Ur Specific [place] (1.000-1.030) Urine Protein (Negative) Urine Glucose (UA) (Negative) Urine Ketones (Negative) Urine Blood (Negative) Urine Nitrite (Negative) Urine Bilirubin (Negative) Urine Urobilinogen (Negative) Ur Leukocyte Esterase (Negative) Urine WBC (Auto) (0-5) /hpf Urine RBC (Auto) (0-4) /hpf U Hyaline Cast (Auto) (0-5) /lpf U Epithel Cells (Auto) (0-5) /lpf Urine Bacteria (Auto) (Negative) Urine Test (Negative) COVID-19 Eval Order SARS-CoV-2 (PCR) (Negative) Influenza Type A (PCR) (Neg) Influenza Type B (PCR) (Neg) RSV (RT-PCR) (Neg) 01/21/21 01/21/21 01/21/21 Range/Units 20:30 20:58 21:40 WBC (4.8-10.8) K/uL RBC (4.2-5.4) M/uL Hgb (12.0-16.0) g/dL Hct (37-47) % MCV (80-100) fL MCH (25-34) pg MCHC (32-36) g/dL RDW Std Deviation (36.4-46.3) fL RDW Coeff of Lizzie (11.5-14.5) % Plt Count (130-400) K/uL MPV (7.4-10.4) fL Immature Gran % (Auto) % Neut % (Auto) % Lymph % (Auto) % [place] % (Auto) % Eos % (Auto) % Baso % (Auto) % Neut # (Auto) (1.4-6.5) K/uL Lymph # (Auto) (1.2-3.4) K/uL [place] # (Auto) (0.11-0.59) K/uL Eos # (Auto) (0-0.5) K/uL Baso # (Auto) (0-0.2) K/uL Immature Gran # (Auto) (0.00-0.02) K/uL PT 11.5 (9.0-12.0) Seconds INR 1.1 (0.9-1.1) APTT 33.5 H (21.0-31.0) Seconds PTT Ratio 1.3 D-Dimer 2200 H* (0-500) ug/L FEU Sodium (136-145) mmol/L Potassium (3.5-5.1) mmol/L Chloride (98-107) mmol/L Carbon Dioxide (21-32) mmol/L Anion Gap (3-11) BUN (7-18) mg/dl Creatinine (0.6-1.2) mg/dl Est Cr Clr Drug Dosing ml/min Est GFR ( Amer) Est GFR (Non-Af Amer) BUN/Creatinine Ratio (10-20) Glucose (70-99) mg/dl Lactate 1.9 (0.4-2.0) mmol/L Calcium (8.5-10.1) mg/dl Magnesium (1.8-2.4) mg/dl Total Bilirubin (0.2-1) mg/dl AST (15-37) U/L ALT (12-78) U/L Alkaline Phosphatase (45-117) U/L Troponin I (0-0.045) ng/ml Total Protein (6.4-8.2) gm/dl Albumin (3.4-5.0) gm/dl Globulin (2.5-4.0) gm/dl Albumin/Globulin Ratio (0.9-2) Lipase (73-393) U/L Procalcitonin (0-0.5) ng/ml Urine Color Urine Appearance (Clear) Urine pH (4.5-7.5) Ur Specific [place] (1.000-1.030) Urine Protein (Negative) Urine Glucose (UA) (Negative) Urine Ketones (Negative) Urine Blood (Negative) Urine Nitrite (Negative) Urine Bilirubin (Negative) Urine Urobilinogen (Negative) Ur Leukocyte Esterase (Negative) Urine WBC (Auto) (0-5) /hpf Urine RBC (Auto) (0-4) /hpf U Hyaline Cast (Auto) (0-5) /lpf U Epithel Cells (Auto) (0-5) /lpf Urine Bacteria (Auto) (Negative) Urine Test (Negative) COVID-19 Eval Order CovFluRsv at [facility] SARS-CoV-2 (PCR) (Negative) Influenza Type A (PCR) (Neg) Influenza Type B (PCR) (Neg) RSV (RT-PCR) (Neg) 01/21/21 01/21/21 01/21/21 Range/Units 21:40 22:12 22:12 WBC (4.8-10.8) K/uL RBC (4.2-5.4) M/uL Hgb (12.0-16.0) g/dL Hct (37-47) % MCV (80-100) fL MCH (25-34) pg MCHC (32-36) g/dL RDW Std Deviation (36.4-46.3) fL RDW Coeff of Lizzie (11.5-14.5) % Plt Count (130-400) K/uL MPV (7.4-10.4) fL Immature Gran % (Auto) % Neut % (Auto) % Lymph % (Auto) % [place] % (Auto) % Eos % (Auto) % Baso % (Auto) % Neut # (Auto) (1.4-6.5) K/uL Lymph # (Auto) (1.2-3.4) K/uL [place] # (Auto) (0.11-0.59) K/uL Eos # (Auto) (0-0.5) K/uL Baso # (Auto) (0-0.2) K/uL Immature Gran # (Auto) (0.00-0.02) K/uL PT (9.0-12.0) Seconds INR (0.9-1.1) APTT (21.0-31.0) Seconds PTT Ratio D-Dimer (0-500) ug/L FEU Sodium (136-145) mmol/L Potassium (3.5-5.1) mmol/L Chloride (98-107) mmol/L Carbon Dioxide (21-32) mmol/L Anion Gap (3-11) BUN (7-18) mg/dl Creatinine (0.6-1.2) mg/dl Est Cr Clr Drug Dosing ml/min Est GFR ( Amer) Est GFR (Non-Af Amer) BUN/Creatinine Ratio (10-20) Glucose (70-99) mg/dl Lactate (0.4-2.0) mmol/L Calcium (8.5-10.1) mg/dl Magnesium (1.8-2.4) mg/dl Total Bilirubin (0.2-1) mg/dl AST (15-37) U/L ALT (12-78) U/L Alkaline Phosphatase (45-117) U/L Troponin I (0-0.045) ng/ml Total Protein (6.4-8.2) gm/dl Albumin (3.4-5.0) gm/dl Globulin (2.5-4.0) gm/dl Albumin/Globulin Ratio (0.9-2) Lipase (73-393) U/L Procalcitonin (0-0.5) ng/ml Urine Color Yellow Urine Appearance Clear (Clear) Urine pH 6.5 (4.5-7.5) Ur Specific [place] 1.013 (1.000-1.030) Urine Protein Trace H (Negative) Urine Glucose (UA) Negative (Negative) Urine Ketones Negative (Negative) Urine Blood Trace H (Negative) Urine Nitrite Negative (Negative) Urine Bilirubin Negative (Negative) Urine Urobilinogen Negative (Negative) Ur Leukocyte Esterase 1+ H (Negative) Urine WBC (Auto) 5-10 H (0-5) /hpf Urine RBC (Auto) 0-4 (0-4) /hpf U Hyaline Cast (Auto) 0 (0-5) /lpf U Epithel Cells (Auto) 5-10 H (0-5) /lpf Urine Bacteria (Auto) Negative (Negative) Urine Test Negative (Negative) COVID-19 Eval Order SARS-CoV-2 (PCR) NEGATIVE (Negative) Influenza Type A (PCR) Negative (Neg) Influenza Type B (PCR) Negative (Neg) RSV (RT-PCR) Negative (Neg) Imaging Data My Impression: Chest x-ray negative. Airway clear. No pneumothorax. No consolidation. No cardiomegaly or cephalization.. No free air under the diaphragm. No fractures of the skeletal structures. Radiologist's Impression: PreliminaryFindingsOnly See Final Report For Complete Findings CT ABDOMEN & PELVIS With Contrast: There is a striated nephrograminvolving the right kidneyaswell as enhancement of the wall of the nondilated ureters consistent with right pyelonephritis and ascending urinarytract infection. There is a rim-enhancing fluid-filled 3.4 x 3.2 cmdiameter structure in the left adnexawith a gas fluid level within it consistent with abscess. Differential considerations include tubo-ovarian abscess or diverticular abscess. This sits immediatelyanterior to a separate smooth oval cystic structure in the posterior left adnexa measuring 4.7 x 3.3 cmwhich mayrepresent left ovarian cysts versus hydrosalpinx. The uterus and right adnexa are unremarkable. Consider ultrasound for further characterization. The liver, gallbladder, spleen, pancreas, and adrenal glands are unremarkable. The appendix is normal. Bowel loops are nondilated. No other acute inflammatorychanges are seen involving the bowel. Skeletal structures are unremarkable. Radiologist: Jorge Aguirre MD Study ready at 22:05 and initial results transmitted at 22:18 PreliminaryFindingsOnly See Final Report For Complete Findings US PELVIC/ENDOVAG: The uterus measures 5.3 x 3 x 4.3 cmwith normal appearance of the myometrium. The endometrial stripe is normal measuring 8 mm. The right ovarymeasures 4 x 2.6 x 2.7 cmwith a normal multi-follicular appearance. Doppler blood flow is normal. The left ovarymeasures 4.5 x 4.1 x 4.6 cm. Doppler blood flowis normal. There is an elongated 6.4 x 3.3 cmcyst within the left adnexa containing sparse internal echoes. There is a complex cystic structure in the left ovarymeasuring approximately4 x 2.9 x 3.8 cmwhich appears to contain gas suggesting tubo-ovarian abscess. Radiologist: Jorge Aguirre MD Study ready at 23:59 and initial results transmitted at 00:20 PreliminaryFindingsOnly See Final Report For Complete Findings CTACHEST: The pulmonaryarterial tree iswell opacified with contrast. No pulmonaryemboli are identified. The thoracic aorta is nondilated. There is no aneurysmor dissection. The heart is not enlarged. No mediastinal or axillarylymphadenopathyor mass is present. Questionable trace 3 mmpleural effusion seen in the costophrenic angles bilaterally. The lungs are well inflated and clear. No infiltrate or consolidation is seen. No pneumothorax. Skeletal structures are unremarkable. Limited images of the upper abdomen appear unremarkable. Radiologist: Jorge Aguirre MD Study ready at 22:13 and initial results transmitted at 22:26 ECG Data Indication: abdominal pain and other Rate (beats per minute): 133 Rhythm: sinus tachycardia Findings: no ST depression, no ST elevation and no prolonged QT MDM Narrative 2025: The patient was evaluated in room C8. A complete history and physical exam was performed Cardiac monitoring: An order was placed for continuous cardiac monitoring. The monitor shows a rate of 140 with sinus tachycardia rhythm Sepsis protocols were initiated. [facility] and had a negative and Covid test there. 2100: Patient has a leukocytosis of 30. Will order CT of the abdomen. 2150: D-dimer elevated. Will order CTA of the chest. 2240: CT shows right-sided pyelonephritis. CT also shows a 3.4 x 3.2 cm ring- enhancing fluid-filled structure in the left adnexa with a gas fluid level consistent with abscess, differential included TOA versus diverticular abscess. There is also mention of a 4.7 x 3.3 cm oval cystic structure in the left adnexa which may represent hydrosalpinx. Ultrasound ordered to further differentiate this. Discussed with Dr. Estrada on-call ENVIRONMENTAL INTERN for [facility] [place] who states he can evaluate the patient. We will start the patient on antibiotics for possible TOA as well as pyelonephritis. Patient will be ordered Cipro IV, Unasyn IV, gentamicin IV, and clindamycin IV. General surgery will also be consulted. On reassessment, the patient is not having any pain in her left lower quadrant. She is having pain on the right side in the right upper quadrant and has right CVA tenderness. We will plan on admitting the patient to the medicine service. Patient states she is sexually active with only one partner. She states she is not concerned for STD. Pelvic exam conducted with nursing female hearing and speech assistant Paulina. There is vaginal discharge. No cervical motion tenderness. No adnexal tenderness. Cervical cultures collected and will be sent to lab. I did offer to discuss the patient's case with her parents/guardians but she declined at this time. 2315: Dr. Aguirre [facility] hospitalist will evaluate the patient for admission. 0041: Vital signs improved. General surgery Benjamin Madrigal evaluated the patient and he discussed the case with his attending Dr. Pascal and they do not feel that the patient has a diverticular abscess at this time, they believe that the patient has a tubo-ovarian abscess. Pelvic ultrasound showed a elongated 6.4 x 3.3 cm cyst in the left adnexa. Complex cystic structure in the left ovary measuring 4 x 2.9 x 3.8 cm containing gas which appeared to be a tubo-ovarian abscess. Patient states she has a history of rash and difficulty breathing when she received amoxicillin as a child. We will hold Unasyn for this reason. I did discuss with Dr. Estrada who stated that the gentamicin and clindamycin should suffice and no additional coverage should be needed for TOA. He agrees with the admission to medicine and states he will evaluate the patient in the morning. Medicine team is aware. Dr. Estrada states there is no need for surgical intervention on the patient at this time with the size of the abscess. Impression & Plan Pyelonephritis, TOA (tubo-ovarian abscess) Discharge Plan Visit Data Chief Complaint: Illness Stated Complaint: ABDOMINAL PAIN, HEADACHE, FEVER ED Provider: Kai Peralta Discharge Problem: Pyelonephritis, TOA (tubo-ovarian abscess) Patient Disposition: Admitted As Inpatient Forms Stand Alone Forms: [facility] Prescriptions Prescriptions: No Action acetaminophen [Tylenol Extra Strength] 500 mg Tablet 1,000 mg PO Q4 PRN (Reason: Pain) RF: 0 ibuprofen [Advil] 200 mg Tablet 400 mg PO Q4 PRN (Reason: Pain) RF: 0 Sinus Allergy [place] 2 spray intranasal DAILY PRN (Reason: SINUS CONGESTION) RF: 0 Referrals Referrals: PCP,NO [Primary Care Provider] -
--- NOTE | 2021-01-22 01:30 | Billing Data ---
Date of Service January 22, 2021 Coding Level of Care Code 76472 Initial Inpt Care Lvl 2
[2021-01-22] MEDS ORDERED: POTASSIUM CHLORIDE CRTAB 20 MEQ TABCR PO STA (02:29)
[2021-01-22] MEDS ORDERED: POLYETHYLENE (MIRALAX) 17 GM PACK PO PRN (02:29)
[2021-01-22] MEDS: NSS + 20MEQ KCL 20 MEQ/1,000 ML BAG IV SCH ×3 (03:11→19:54)
[2021-01-22] MEDS: cefOXitin 2,000 MG in DEXTROSE 5% 50 ML IV SCH ×4 (04:19→22:17)
[2021-01-22] MEDS: DOXYCYCLINE HYCLATE 100 MG in DEXTROSE 5% 100 ML IV SCH ×2 (05:22→17:45)
[2021-01-22] MEDS: ONDANSETRON INJ 2 MG/ML 2 ML VIAL IV PRN (06:00)
[2021-01-22] MEDS ORDERED: CIPROFLOXACIN / D5W 400 MG/200 ML BAG IV SCH (06:00)
[2021-01-22] MEDS: ACETAMINOPHEN 325 MG TAB PO PRN ×3 (06:22→18:21)
[2021-01-22 06:45] LABS: Hemoglobin 10.5 g/dL (12.0-16.0); Mean Corpuscular Hemoglobin 30.1 pg (25-34); Mean Corpuscular Hgb Conc 33.9 g/dL (32-36); Mean Corpuscular Volume 88.8 fL (80-100); Mean Platelet Volume 10.9 fL (7.4-10.4); Platelet Count 205 K/uL (130-400); RDW Standard Deviation 42.2 fL (36.4-46.3); Red Blood Count 3.49 M/uL (4.2-5.4); White Blood Count 32.86 K/uL (4.8-10.8)
[2021-01-22 06:48] LABS: BUN Creatinine Ratio 6.2 (10-20); Creatinine Clr Calc Pharmacy 51.5 ml/min; Est GFR (African American) 57.7; Est GFR (Non-African American) 49.7; Potassium 4.4 mmol/L (3.5-5.1)
[2021-01-22 07:07] LABS: ANC (manual) 31.15 K/uL (1.4-6.5); Lymphocytes % (manual) 0.9 %; Monocytes # (manual) 1.41 K/uL (0.11-0.59); Monocytes % (manual) 4.3 %; Neutrophils # (manual) 31.15 K/uL (1.4-6.5); Neutrophils % (manual) 94.8 %
--- NOTE | 2021-01-22 07:23 | XRay Report ---
SINGLE VIEW CHEST CLINICAL HISTORY: Sepsis. FINDINGS: An AP, portable, upright chest radiograph is obtained. No prior studies are available for c omparison at the time of dictation. The cardiomediastinal silhouette is unremarkable. The lungs and pleural spaces are clear. No pneumothorax is seen. The bony thorax is grossly intact. Bilateral nippl e piercings are noted. IMPRESSION: No active disease in the chest. ACT 112: Negative or not required by law. Electronically signed by: Filemon Klein M.D. 01/22/2021 7:22 AM
--- NOTE | 2021-01-22 07:33 | CT Scan Report ---
CT ANGIOGRAPHY OF THE CHEST, PULMONARY EMBOLUS PROTOCOL CLINICAL HISTORY: Shortness of breath. COMPARISON STUDY: Chest radiograph January 21, 2021. TECHNIQUE: Following IV administration of 109 mL of Optiray, helical axial images of the chest were o btained utilizing the pulmonary embolus protocol. Maximal intensity projections and sagittal and cor onal reformats were viewed on an independent 3D workstation. IV contrast was administered without co mplication. Automated exposure control was utilized for the study. A dose lowering technique was ut ilized adhering to the principles of ALARA. CT DOSE: 220.43 mGy.cm FINDINGS: A few prominent left lower cervical lymph nodes measure up to 9 mm in short axis diameter. These are probably benign. The size of the heart is normal. There is no thoracic aortic dissection. No pulmonary emboli are identified. There is no pericardial effusion. No pneumothorax is present. The re are trace bilateral pleural effusions. There is no consolidation to suggest pneumonia. There are n o pulmonary nodules. Central airways are patent. Visualized portions of the bony thorax are unremarka ble. The abdomen and pelvis will be reported separately. IMPRESSION: 1. No pulmonary emboli identified. 2. No consolidation to suggest pneumonia. 3. Trace bilateral pleural effusions. ACT 112: Negative or not required by law. Electronically signed by: Robe Silva M.D. 01/22/2021 7:32 AM
--- NOTE | 2021-01-22 07:57 | CT Scan Report ---
CT SCAN OF THE ABDOMEN AND PELVIS WITH IV CONTRAST CLINICAL HISTORY: Epigastric abdominal pain. COMPARISON STUDY: No priors. TECHNIQUE: Following the IV administration of 86 cc of Optiray 300, CT scan of the abdomen and pelvi s is performed from the lung bases to the proximal femora. Images are reviewed in the axial, sagittal , and coronal planes. IV contrast was administered without complication. A dose lowering technique wa s utilized adhering to the principles of ALARA. CT DOSE: 287.96 mGy.cm FINDINGS: Lung bases: The heart is normal in size and without pericardial effusion. There are trace pleural eff usions with dependent atelectasis. Liver: The contrast-enhanced liver is normal in size, contour, and attenuation. There is no intrahepa tic biliary ductal dilatation. The hepatic veins and portal veins are patent. Gallbladder: Unremarkable. Spleen: Normal in size and attenuation. Pancreas: Unremarkable. Adrenal glands: Unremarkable. Kidneys: The contrast enhanced kidneys are normal in size and without hydronephrosis. There is marked ly heterogeneous enhancement of the right kidney with associated perinephric stranding. Urothelial th ickening is noted in the right renal pelvis and along the course of the right ureter. Mild urothelial thickening and enhancement is also seen in the left ureter. The left kidney enhances homogeneously. Abdominal vasculature: The abdominal aorta is normal in course and caliber. Bowel: There is no bowel obstruction. The appendix is well-visualized and normal. Peritoneum: There is no intraperitoneal free air or abdominal ascites. Lymphadenopathy: Mildly enlarged retroperitoneal lymph nodes measure up to 11 mm short axis. Pelvic viscera: The bladder is distended. The bladder wall is mildly thickened. The uterus is normal as visualized. There is trace free fluid in the cul-de-sac. There is a 3.9 x 3.3 cm gas and fluid con taining collection identified in the left adnexa, possibly related to left ovary/fallopian tube. Surr ounding inflammation is noted. There is an additional 5.0 x 3.6 cm cystic structure in the left adnex a on image #[id number] which may also be related to the left ovary. Numerous follicles are noted in the righ t ovary. Skeletal structures: No lytic or blastic lesions are seen. IMPRESSION: 1. Findings are consistent with ascending tract infection and right-sided pyelonephritis. Correlation with clinical findings and urinalysis will be required. 2. There is a gas and fluid containing collection the left adnexa, likely related to the left ovary a s well as an indeterminant cystic structure. Findings are suspicious for hydrosalpinx and tubo-ovaria n abscess. Clinical correlation will be required. Pelvic ultrasound may provide further information. 3. Trace pleural effusions. 4. A small volume of nonspecific free fluid is seen in the cul-de-sac. 5. Mildly enlarged retroperitoneal lymph nodes are likely reactive. ACT 112: Negative or not required by law. Electronically signed by: Filemon Klein M.D. 01/22/2021 7:56 AM
--- NOTE | 2021-01-22 08:05 | Ultrasound Report ---
EXAMINATION: PELVIC ULTRASOUND (transabdominal and endovaginal scanning) CLINICAL HISTORY: Pelvic pain ABNORMAL CT SCAN COMPARISON STUDY: CT scan dated 01/21/2021 FINDINGS: On transabdominal scanning, endovaginal scanning was performed to better assess the adnexal structure s. The uterus measured 5.3 x 3 x 4.3 cm. The endometrial stripe measured 8 mm. The right ovary measured 40 x 26 x 27 mm The left ovary measured 45 x 41 x 46 mm. There is a 40 x 29 x 38 mm slightly echogenic left adnexal m ass with foci of dirty shadowing possibly representing gas. As the adjacent fluid-filled structure me asuring 63 x 32 x 51 mm with low-level echoes. The findings are suspicious for a tubo-ovarian abscess .. There was no evidence of pathologic free pelvic fluid. IMPRESSION: 1. Complex left adnexal mass consisting of a 40 x 29 x 38 mm echogenic focus with areas of dirty shad owing, as well as a somewhat tubular fluid-filled 63 x 32 x 51 mm structure with low level echoes. Th e findings are viewed as suspicious for a tubo-ovarian abscess. Clinical correlation in this regard i s advocated ACT 112: Negative or not required by law. Electronically signed by: Michael Song M.D. 01/22/2021 8:03 AM
--- NOTE | 2021-01-22 08:49 | Electrocardiogram Report ---
Test Reason : Blood Pressure : / mmHG Vent. Rate : 133 BPM Atrial Rate : 133 BPM P-R Int : 120 ms QRS Dur : 084 ms QT Int : 268 ms P-R-T Axes : 068 058 024 degrees QTc Int : 398 ms Sinus tachycardia Diffuse Minor Nonspecific T wave abnormality Abnormal ECG No previous ECGs available Confirmed by Karan Karimi ([id number]) on 01/22/2021 8:48:59 AM Referred By: REFERRED SELF Confirmed By:Karan Karimi
--- NOTE | 2021-01-22 09:09 | OB/GYN Consultation ---
Date of Consultation January 22, 2021 Assessment & Plan (1) TOA (tubo-ovarian abscess): Christy is a 20-year-old who presents for flank pain ultimately diagnosed with pyelonephritis and was incidentally noted to have 2 complex adnexal masses. There is noted to be a complex tubular mass that is very consistent with tubo- ovarian abscess noted in the left adnexa. On exam the patient did not have any typical exam findings of PID or tubo-ovarian abscess. Patient denies any history of sexually transmitted infections and denies any history related to pelvic inflammatory disease or a tubo-ovarian abscess. Clinically the picture does not point towards tubo-ovarian abscess or pelvic inflammatory disease although imaging does strongly point to that as the likely cause of the tubular mass. Based on the size of the mass it should respond well to antibiotics alone and likely will not require surgical intervention. Current antibiotic regimen started in ED should adequately cover the TOA. We recommend allowing 48-72 hours of antibiotics with reassessment of response at that time and if not r esponding adequately may indicate for surgical intervention. The 4 cm complex mass could represent a dermoid, endometrioma or may be related to the tubo- ovarian abscess. She will need repeat imaging after resolution of the current infection to evaluate persistence or resolution of the 4 cm cyst. We will continue to monitor patient and will plan to see her tomorrow morning and otherwise as needed. (2) Pyelonephritis: (3) Complex cyst of uterine adnexa: History of Present Illness Attending Physician: Kelsi Rogers MD History of Present Illness Christy is a 20-year-old G0 presents to the emergency department yesterday with flank pain. Patient was initially seen in urgent care clinic and was noted to have a significantly elevated heart rate and due to the combined symptoms was sent to the emergency department. In the emergency department the patient was evaluated and diagnosed with pyelonephritis. Incidentally noted in the workup for flank pain was the presence of a complex tubular mass in the left adnexa measuring 63 x 32 x 51 mm with low level echoes consistent with a likely tubo- ovarian abscess. A 2nd complex adnexal masses also noted which could represent an abscess versus endometrioma versus dermoid measuring 4 cm in greatest diameter. In discussion with Christy she denies any symptoms related to tubo- ovarian abscess. Patient denies any history of gonorrhea or chlamydia. She reports only 1 prior sexual partner. She denies any pelvic pain or dyspareunia. Denies any abnormal or purulence type discharge. Allergies Allergy/AdvReac Type Severity Reaction Status Date / Time Penicillins Allergy Severe ANAPHYLAXIS Verified 01/22/21 00:18 erythromycin base AdvReac Mild GI SYMPTOMS Verified 01/22/21 02:41 Home Medications Medication Instructions Recorded Confirmed Type Sinus Allergy [place] 2 spray INTRANASAL DAILY PRN 01/21/21 01/21/21 History acetaminophen [Tylenol Extra 1,000 mg PO Q4 PRN 01/21/21 01/21/21 History Strength] ibuprofen [Advil] 400 mg PO Q4 PRN 01/21/21 01/21/21 History Patient History Medical History H/O bronchitis Surgical History H/O wisdom tooth extraction S/P adenoidectomy S/P tonsillectomy Family History Other Diabetes Social History Smoking Status: Never smoker Hx Alcohol Use: Yes Hx Substance Use: No Preferred Language: Frisian Beliefs That Will Affect Care: None Current Living Situation Comment: lives with roomate at college Feels Safe at Home: Yes Assistive Devices: None Physical Exam Physical Exam: Please see primary team note for physical exam not noted below. Exam chaperoned by 2nd floor nurse. Gastrointestinal (Abdomen): Inspection/Auscultation: abdomen not distended Percussion/Palpation: abdomen soft; abdomen nontender, no guarding and abdomen not rigid Psychiatric: A+Ox3, euthymic affect Genitourinary: normal external appearance Speculum/Bimanual Exam: normal appearance of the vagina; no cervical tenderness, no cervical motion tenderness, uterus not enlarged and uterus nontender On bimanual exam patient noted no tenderness. A gentle exam was performed with palpation of the cervix, uterus, bilateral adnexa, bladder and posterior vaginal wall overlying rectum with no pain or tenderness appreciated. No abnormal discharge noted Results & Data ([facility]) Vital Signs (Past 12 Hours) Vital Signs Temp Pulse Pulse Resp BP BP Pulse Ox 01/22/21 07:38 38.0 C H 135 H 18 99/59 L 96 01/22/21 06:23 37.4 C 01/22/21 02:30 37.3 C 120 H 110/66 98 01/22/21 02:00 122 H 12 107/82 100 01/22/21 01:30 116 H 17 111/70 100 01/22/21 01:00 115 H 18 94/59 L 98 01/22/21 00:31 118 H 19 111/54 L 99 01/22/21 00:13 37.4 C 01/22/21 00:08 137 H 22 128/93 93 01/21/21 23:00 37.5 C 121 H 22 119/60 100 01/21/21 22:30 128 H 22 114/75 100 01/21/21 22:10 125 H 23 114/67 100 01/21/21 22:08 23 01/21/21 21:31 120 H 15 100 01/21/21 21:30 124 H 17 112/78 100 01/21/21 21:16 22 100 01/21/21 21:11 125 H 18 120/75 100 01/21/21 21:00 123 H 18 100 PG Care Time/CCT Total # of Minutes Spent Total Time Spent with Patient: Total time spent is greater than 50% in coordination of care (as documented) at patient's floor/unit and/or counseling patient: Coding Level of Care Code 05218 Office/OBS Consult Lvl 4 Diagnoses TOA (tubo-ovarian abscess) N70.93 Pyelonephritis N12 Complex cyst of uterine adnexa N83.8
--- NOTE | 2021-01-22 10:12 | Surgery Progress Note ---
Date of Service January 22, 2021 Assessment & Plan (1) TOA (tubo-ovarian abscess): pyelonephritis and tubo-ovarian abscess, no e/o diverticulitis. abx and management per lead mechanical engineer and primary team no acute general surgical issues surgery will sign off, call with questions or concerns (2) Pyelonephritis: (3) Complex cyst of uterine adnexa: Admission and Anticipated Discharge Date Admission Date: January 22, 2021 Subjective 20 y/o female admitted with pyelonephritis and tubo-ovarian abscess. Feeling better, still slightly febrile. Physical Exam Constitutional: WD/WN, vitals as above Gastrointestinal (Abdomen): normal bowel sounds, soft, nontender, no hepatosplenomegaly Results & Data ([facility]) Vital Signs (Past 12 Hours) Vital Signs Temp Pulse Pulse Resp BP BP Pulse Ox 01/22/21 07:38 38.0 C H 135 H 18 99/59 L 96 01/22/21 06:23 37.4 C 01/22/21 02:30 37.3 C 120 H 110/66 98 01/22/21 02:00 122 H 12 107/82 100 01/22/21 01:30 116 H 17 111/70 100 01/22/21 01:00 115 H 18 94/59 L 98 01/22/21 00:31 118 H 19 111/54 L 99 01/22/21 00:13 37.4 C 01/22/21 00:08 137 H 22 128/93 93 01/21/21 23:00 37.5 C 121 H 22 119/60 100 01/21/21 22:30 128 H 22 114/75 100 01/21/21 22:10 125 H 23 114/67 100 Laboratory Results Laboratory Results - last 24 hr 01/21/21 01/21/21 01/21/21 20:30 20:30 20:30 WBC 30.05 H* RBC 3.83 L Hgb 11.6 L Hct 33.8 L MCV 88.3 MCH 30.3 MCHC 34.3 RDW Std Deviation 41.2 RDW Coeff of Lizzie 12.8 Plt Count 207 MPV 11.1 H Immature Gran % (Auto) 0.6 Neut % (Auto) 92.4 Lymph % (Auto) 3.6 [place] % (Auto) 3.3 Eos % (Auto) 0.0 Baso % (Auto) 0.1 Neut # (Auto) 27.79 H Lymph # (Auto) 1.08 L [place] # (Auto) 0.98 H Eos # (Auto) 0.01 Baso # (Auto) 0.02 Immature Gran # (Auto) 0.17 H Neutrophils % (Manual) Lymphocytes % (Manual) Monocytes % (Manual) Neutrophils # (Manual) Total Absolute Neuts Lymphocytes # (Manual) Total Abs Lymphocytes Monocytes # (Manual) PT INR APTT PTT Ratio D-Dimer Sodium 131 L Potassium 3.1 L Chloride 98 Carbon Dioxide 24 Anion Gap 8.0 BUN 11 Creatinine 1.21 H Est Cr Clr Drug Dosing 62.5 Est GFR ( Amer) 73.6 Est GFR (Non-Af Amer) 63.5 BUN/Creatinine Ratio 8.7 L Glucose 108 H Lactate Calcium 9.0 Magnesium 1.9 Total Bilirubin 1.1 H AST 26 ALT 25 Alkaline Phosphatase 196 H Troponin I < 0.015 Total Protein 7.4 Albumin 3.3 L Globulin 4.1 H Albumin/Globulin Ratio 0.8 L Lipase 38 L Procalcitonin 12.49 H Urine Color Urine Appearance Urine pH Ur Specific [place] Urine Protein Urine Glucose (UA) Urine Ketones Urine Blood Urine Nitrite Urine Bilirubin Urine Urobilinogen Ur Leukocyte Esterase Urine WBC (Auto) Urine RBC (Auto) U Hyaline Cast (Auto) U Epithel Cells (Auto) Urine Bacteria (Auto) Urine Test C.trachomatis RNA COVID-19 Eval Order SARS-CoV-2 (PCR) Influenza Type A (PCR) Influenza Type B (PCR) N.gonorrhoeae RNA RSV (RT-PCR) Reference Lab Comment 01/21/21 01/21/21 01/21/21 20:30 20:58 21:40 WBC RBC Hgb Hct MCV MCH MCHC RDW Std Deviation RDW Coeff of Lizzie Plt Count MPV Immature Gran % (Auto) Neut % (Auto) Lymph % (Auto) [place] % (Auto) Eos % (Auto) Baso % (Auto) Neut # (Auto) Lymph # (Auto) [place] # (Auto) Eos # (Auto) Baso # (Auto) Immature Gran # (Auto) Neutrophils % (Manual) Lymphocytes % (Manual) Monocytes % (Manual) Neutrophils # (Manual) Total Absolute Neuts Lymphocytes # (Manual) Total Abs Lymphocytes Monocytes # (Manual) PT 11.5 INR 1.1 APTT 33.5 H PTT Ratio 1.3 D-Dimer 2200 H* Sodium Potassium Chloride Carbon Dioxide Anion Gap BUN Creatinine Est Cr Clr Drug Dosing Est GFR ( Amer) Est GFR (Non-Af Amer) BUN/Creatinine Ratio Glucose Lactate 1.9 Calcium Magnesium Total Bilirubin AST ALT Alkaline Phosphatase Troponin I Total Protein Albumin Globulin Albumin/Globulin Ratio Lipase Procalcitonin Urine Color Urine Appearance Urine pH Ur Specific [place] Urine Protein Urine Glucose (UA) Urine Ketones Urine Blood Urine Nitrite Urine Bilirubin Urine Urobilinogen Ur Leukocyte Esterase Urine WBC (Auto) Urine RBC (Auto) U Hyaline Cast (Auto) U Epithel Cells (Auto) Urine Bacteria (Auto) Urine Test C.trachomatis RNA COVID-[address]Rsv at [facility] SARS-CoV-2 (PCR) Influenza Type A (PCR) Influenza Type B (PCR) N.gonorrhoeae RNA RSV (RT-PCR) Reference Lab Comment 01/21/21 01/21/21 01/21/21 21:40 22:12 22:12 WBC RBC Hgb Hct MCV MCH MCHC RDW Std Deviation RDW Coeff of Lizzie Plt Count MPV Immature Gran % (Auto) Neut % (Auto) Lymph % (Auto) [place] % (Auto) Eos % (Auto) Baso % (Auto) Neut # (Auto) Lymph # (Auto) [place] # (Auto) Eos # (Auto) Baso # (Auto) Immature Gran # (Auto) Neutrophils % (Manual) Lymphocytes % (Manual) Monocytes % (Manual) Neutrophils # (Manual) Total Absolute Neuts Lymphocytes # (Manual) Total Abs Lymphocytes Monocytes # (Manual) PT INR APTT PTT Ratio D-Dimer Sodium Potassium Chloride Carbon Dioxide Anion Gap BUN Creatinine Est Cr Clr Drug Dosing Est GFR ( Amer) Est GFR (Non-Af Amer) BUN/Creatinine Ratio Glucose Lactate Calcium Magnesium Total Bilirubin AST ALT Alkaline Phosphatase Troponin I Total Protein Albumin Globulin Albumin/Globulin Ratio Lipase Procalcitonin Urine Color Yellow Urine Appearance Clear Urine pH 6.5 Ur Specific [place] 1.013 Urine Protein Trace H Urine Glucose (UA) Negative Urine Ketones Negative Urine Blood Trace H Urine Nitrite Negative Urine Bilirubin Negative Urine Urobilinogen Negative Ur Leukocyte Esterase 1+ H Urine WBC (Auto) 5-10 H Urine RBC (Auto) 0-4 U Hyaline Cast (Auto) 0 U Epithel Cells (Auto) 5-10 H Urine Bacteria (Auto) Negative Urine Test Negative C.trachomatis RNA COVID-19 Eval Order SARS-CoV-2 (PCR) NEGATIVE Influenza Type A (PCR) Negative Influenza Type B (PCR) Negative N.gonorrhoeae RNA RSV (RT-PCR) Negative Reference Lab Comment 01/21/21 01/22/21 01/22/21 22:30 06:08 06:08 WBC 32.86 H* RBC 3.49 L Hgb 10.5 L Hct 31.0 L MCV 88.8 MCH 30.1 MCHC 33.9 RDW Std Deviation 42.2 RDW Coeff of Lizzie 13.0 Plt Count 205 MPV 10.9 H Immature Gran % (Auto) Neut % (Auto) Lymph % (Auto) [place] % (Auto) Eos % (Auto) Baso % (Auto) Neut # (Auto) Lymph # (Auto) [place] # (Auto) Eos # (Auto) Baso # (Auto) Immature Gran # (Auto) Neutrophils % (Manual) 94.8 Lymphocytes % (Manual) 0.9 Monocytes % (Manual) 4.3 Neutrophils # (Manual) 31.15 H Total Absolute Neuts 31.15 H Lymphocytes # (Manual) 0.30 L Total Abs Lymphocytes 0.30 L Monocytes # (Manual) 1.41 H PT INR APTT PTT Ratio D-Dimer Sodium 138 D Potassium 4.4 D Chloride 113 H Carbon Dioxide 19 L Anion Gap 6.0 BUN 9 Creatinine 1.48 H Est Cr Clr Drug Dosing 51.5 Est GFR ( Amer) 57.7 Est GFR (Non-Af Amer) 49.7 BUN/Creatinine Ratio 6.2 L Glucose 110 H Lactate Calcium 9.0 Magnesium Total Bilirubin AST ALT Alkaline Phosphatase Troponin I Total Protein Albumin Globulin Albumin/Globulin Ratio Lipase Procalcitonin Urine Color Urine Appearance Urine pH Ur Specific [place] Urine Protein Urine Glucose (UA) Urine Ketones Urine Blood Urine Nitrite Urine Bilirubin Urine Urobilinogen Ur Leukocyte Esterase Urine WBC (Auto) Urine RBC (Auto) U Hyaline Cast (Auto) U Epithel Cells (Auto) Urine Bacteria (Auto) Urine Test C.trachomatis RNA Pending COVID-19 Eval Order SARS-CoV-2 (PCR) Influenza Type A (PCR) Influenza Type B (PCR) N.gonorrhoeae RNA Pending RSV (RT-PCR) Reference Lab Comment Pending Diagnostic Findings CT SCAN OF THE ABDOMEN AND PELVIS WITH IV CONTRAST CLINICAL HISTORY: Epigastric abdominal pain. COMPARISON STUDY: No priors. TECHNIQUE: Following the IV administration of 86 cc of Optiray 300, CT scan of the abdomen and pelvis is performed from the lung bases to the proximal femora. Images are reviewed in the axial, sagittal, and coronal planes. IV contrast was administered without complication. A dose lowering technique was utilized adhering to the principles of ALARA. CT DOSE: 287.96 mGy.cm FINDINGS: Lung bases: The heart is normal in size and without pericardial effusion. There are trace pleural effusions with dependent atelectasis. Liver: The contrast-enhanced liver is normal in size, contour, and attenuation. There is no intrahepatic biliary ductal dilatation. The hepatic veins and portal veins are patent. Gallbladder: Unremarkable. Spleen: Normal in size and attenuation. Pancreas: Unremarkable. Adrenal glands: Unremarkable. Kidneys: The contrast enhanced kidneys are normal in size and without hydronephrosis. There is markedly heterogeneous enhancement of the right kidney with associated perinephric stranding. Urothelial thickening is noted in the right renal pelvis and along the course of the right ureter. Mild urothelial thickening and enhancement is also seen in the left ureter. The left kidney enhances homogeneously. Abdominal vasculature: The abdominal aorta is normal in course and caliber. Bowel: There is no bowel obstruction. The appendix is well-visualized and normal. Peritoneum: There is no intraperitoneal free air or abdominal ascites. Lymphadenopathy: Mildly enlarged retroperitoneal lymph nodes measure up to 11 mm short axis. Pelvic viscera: The bladder is distended. The bladder wall is mildly thickened. The uterus is normal as visualized. There is trace free fluid in the cul-de-sac. There is a 3.9 x 3.3 cm gas and fluid containing collection identified in the left adnexa, possibly related to left ovary/fallopian tube. Surrounding inflammation is noted. There is an additional 5.0 x 3.6 cm cystic structure in the left adnexa on image #355 which may also be related to the left ovary. Numerous follicles are noted in the right ovary. Skeletal structures: No lytic or blastic lesions are seen. IMPRESSION: 1. Findings are consistent with ascending tract infection and right-sided pyelonephritis. Correlation with clinical findings and urinalysis will be required. 2. There is a gas and fluid containing collection the left adnexa, likely related to the left ovary as well as an indeterminant cystic structure. Findings are suspicious for hydrosalpinx and tubo-ovarian abscess. Clinical correlation will be required. Pelvic ultrasound may provide further information. 3. Trace pleural effusions. 4. A small volume of nonspecific free fluid is seen in the cul-de-sac. 5. Mildly enlarged retroperitoneal lymph nodes are likely reactive. PG Care Time/CCT Total # of Minutes Spent Total Time Spent with Patient: Total time spent is greater than 50% in coordination of care (as documented) at patient's floor/unit and/or counseling patient: Coding Level of Care Code 42949 Inpt Consult Level 3 Diagnoses TOA (tubo-ovarian abscess) N70.93 Pyelonephritis N12 Complex cyst of uterine adnexa N83.8
[2021-01-22] MEDS ORDERED: SODIUM CHLORIDE 0.9% 1000ML 500 ML IV ONE (11:33)
[2021-01-22] MEDS ORDERED: SODIUM CHLORIDE 0.9% 1000ML 1,000 ML IV ONE ×2 (11:35→13:42)
--- NOTE | 2021-01-22 15:37 | Medical Student Progress Note ---
Date of Service January 22, 2021 Assessment & Plan (1) Pyelonephritis: 1. Acute Pyelonephritis Christy Santana is a 20-year-old female with a benign PMHx who presented to [facility] emergency department on 01/21/21 due to a three-day history of fever, chills, and abdominal pain. Abdominal/Pelvic CT performed in the ED revealed right-sided pyelonephritis as well as a left adnexal abscess suspicious for a tubo-ovarian abscess. Patient was admitted for treatment and further evaluation of both infection sources. * Abdominal/Pelvic CT performed on 01/21/21 showing right-sided pyelonephritis * Leukocytosis 30.05 on admission. Increased to 32.86. Continue trending daily CBC * Initiated IV Cefoxitin + Doxycycline. Antibiotic choice driven by concern for a tubo-ovarian abscess based on initial CT scan. However, antibiotic regimen will provide adequate coverage for pyelonephritis as well * Blood Culture pending. Gram stain shows gram negative rods. * Urinalysis: 1+ leukocyte esterase, 5-10 WBCs, trace blood, 0-4 RBCs, negative bacteria 2. Tubo-ovarian Abscess Abdominal/pelvic CT performed in emergency department revealed a left adnexal complex cyst suggestive of a TOA. Pelvic exam was performed but did not reveal adnexal tenderness or CMT. At this time, the TOA is believed to be unrelated to the patient's current infectious presentation and sepsis but the chosen antibiotic regimen will provide adequate coverage anyway. Patient will be appropriately managed for TOA and OBGYN has been consulted for their input regarding management and potential surgical intervention. * Abdominal/Pelvic CT showed left adnexal abscess suggestive of TOA * TVUS performed 01/22/21. Complex left adnexal mass measuring 40 x 29 x 38 mm with echogenic focus. Tubular fluid-filled 63 x 32 x 51 mm structure with low level echoes. Findings suggestive of tubo-ovarian abscess * OBGYN consult appreciated. No surgical intervention recommended at this time. Agree with antibiotic regimen. * Gonococcal and chlamydia cultures pending * C. trachomatis culture pending 3. Urosepsis Patient continues to be hypotensive and tachycardic despite multiple fluid boluses. She is currently stable but close monitoring of hemodynamics is needed as we continue antibiotic treatment of pyelonephritis * Blood specimen gram stain showing gram negative rods. Awaiting blood culture. * SBP range 95 to 111. DBP range 48 to 82. Tachycardic with HR range 115 to 148. * 1 L bolus NSS x2. 0.5 L bolus NSS x1. Patient currently medically stable but remains hypotensive and tachycardic. Consider ICU admission for closer monitoring if patient remains hypotensive 4. Acute Kidney Injury Patient presented with lab findings suggestive of an intrarenal ARMANDO, which is likely secondary to pyelonephritis. Due to persistent hypotension, there may be a prerenal component as well * Continue maintenance fluids * Daily BMP check Code Status: Full Code FEN: NSS maintenance fluds. Bolus as needed. Daily BMP and CBC. NPO VTE PPx: Enoxaparin Dispo: Med Surg with Telemetry Admission and Anticipated Discharge Date Admission Date: January 22, 2021 Supervising Attestation Medical Student Supervision Note: I was personally present during medical student patient encounter and inde pendently interviewed and examined the patient and verified the layne history and physical, reviewed labs and image studies, discussed the case with Aquiles Ramsey and agree with the findings and care plan. Severe Sepsis from acute pyelonephritis with bacteremia Tubo-ovarian abscess -continue IV abx and IVF for pressors. -close monitoring. Subjective Patient states that she feels well this morning. She denies any subjective fever, chills, fatigue, PALOMARES, lightheadedness or dizziness with ambulation, shortness of breath, or chest pain. She does not endorse any abdominal or flank pain when supine but she does note right flank pain when laying on her left side. She denies dysuria, urinary frequency, or urinary incontinence. She also denies any pelvic pain or vaginal discharge. She notes that she experienced increased urinary urgency about 3 weeks ago. She compared the sensation to a "bad UTI" that she had in childhood. She managed the urinary urgency by increased fluid intake, which resulted in resolution of symptoms by the next day. She did not take any antibiotics at this time and she has not experienced any urinary symptoms within the past 3 weeks. She denies a history of pyelonephritis. Her LMP was two weeks ago. She denies any menstrual irregularities and she endorses light menses. She is sexually active with one male long-distance partner but she has not had sexual intercourse within the past few months. They do not use barrier contraception. She denies any history of sexually transmitted infections. Review of Systems Constitutional: as per Subjective / HPI Respiratory: as per Subjective / HPI Cardiovascular: as per Subjective / HPI Gastrointestinal: as per Subjective / HPI Genitourinary: as per Subjective / HPI Integumentary: no problem reported Physical Exam Constitutional: WD/WN, vitals as above no acute distress Eyes: PERRL, conjunctivae normal, anicteric sclerae ENMT: external ear and nose normal, oropharynx normal Neck: normal visual inspection Respiratory: normal respiratory effort, lungs clear to auscultation Cardiovascular: RRR, no murmur, no edema Gastrointestinal (Abdomen): Inspection/Auscultation: abdomen normal to inspection and normal bowel sounds; abdomen not distended Percussion/Palpation: + abdomen tender (RUQ); no guarding, abdomen not rigid and no hepatosplenomegaly Musculoskeletal: no cyanosis or clubbing, extremities motor strength 5/5 Skin: no rashes, warm and dry Psychiatric: A+Ox3, euthymic affect Genitourinary: + CVA tenderness (Right sided) Lymphatic: no cervical or axillary lymphadenopathy Results & Data ([facility]) Vital Signs (Past 12 Hours) Vital Signs Temp Pulse Pulse Resp BP Pulse Ox 01/22/21 13:00 37.9 C H 125 H 20 103/52 L 95 01/22/21 11:21 39.4 C H 132 H 20 98/48 L 97 01/22/21 08:00 135 H 01/22/21 07:38 38.0 C H 135 H 18 99/59 L 96 01/22/21 06:23 37.4 C
[2021-01-22] MEDS ORDERED: ACETAMINOPHEN 1000 MG/100 ML IV IV STA (18:23)
[2021-01-22] MEDS ORDERED: MoRPHine SULFATE 2 MG/ML CARP IV PRN (18:24)
[2021-01-22] MEDS: HEPARIN SOD 5,000 UNIT/0.5 ML VIAL SQ SCH (22:18)
[2021-01-23] MEDS: ACETAMINOPHEN 325 MG TAB PO PRN ×4 (00:34→23:28)
[2021-01-23] MEDS: cefOXitin 2,000 MG in DEXTROSE 5% 50 ML IV SCH ×3 (03:57→15:40)
[2021-01-23] MEDS ORDERED: SODIUM CHLORIDE 0.9% 1000ML 1,000 ML IV ONE (04:19)
[2021-01-23] MEDS: ONDANSETRON INJ 2 MG/ML 2 ML VIAL IV PRN ×3 (04:25→19:52)
[2021-01-23] MEDS: NSS + 20MEQ KCL 20 MEQ/1,000 ML BAG IV SCH ×3 (05:52→23:39)
[2021-01-23] MEDS: DOXYCYCLINE HYCLATE 100 MG in DEXTROSE 5% 100 ML IV SCH ×2 (05:52→17:37)
[2021-01-23 06:57] LABS: Hematocrit (blood only) 28.7 % (37-47); Hemoglobin 9.8 g/dL (12.0-16.0); Mean Corpuscular Hgb Conc 34.1 g/dL (32-36); Mean Corpuscular Volume 87.8 fL (80-100); Mean Platelet Volume 10.7 fL (7.4-10.4); Platelet Count 217 K/uL (130-400); RDW Coefficient of Variation 13.6 % (11.5-14.5); RDW Standard Deviation 44.1 fL (36.4-46.3); Red Blood Count 3.27 M/uL (4.2-5.4); White Blood Count 22.76 K/uL (4.8-10.8)
--- NOTE | 2021-01-23 07:01 | Obstetrical Progress Note ---
Date of Service January 23, 2021 Assessment & Plan (1) Pyelonephritis: Christy Santana is a 20yo female without significant PMH who presents with pyelonephritis, with two complex adnexal masses seen on imaging. Unclear whether adnexal masses are incidental findings, or, seemingly less likely, developing TOA. Patient is without typical symptoms of TOA including pelvic pain/tenderness. Patient's symptoms overall appear to be responding well to her current antibiotic regimen. Patient remains febrile, but WBC count continues to improve. If patient's clinical presentation continues to improve on current regimen, no further intervention will likely be necessary from FOREST TECHNOLOGY PROFESSOR perspective, and monitoring of patient's adnexal masses would be appropriately achieved with ultrasound about 6 weeks after discharge. However, if patient's clinical picture does not continue to improve, and TOA remains on the differential, further intervention would need to be considered, and might be best approached at a facility with interventional radiology. Patient was counseled on these possibilities, though it was noted that her current steady improvement is reassuring. -Recommend continuation of patient's current treatment regimen -OBGYN will continue to follow (2) Complex cyst of uterine adnexa: Admission and Anticipated Discharge Date Admission Date: January 22, 2021 Supervising Physician Co-Signing Physician Notes Resident Physician Supervision Note: I was present with Dr. hSay during the history and exam. I discussed the case with the resident and agree with the findings and plan as documented in the note. Any exceptions or clarifications are listed here: 20yo with pyelonephritis, sepsis. Treated with cefoxitin and doxycycline. Also finding on imaging of ovarian cyst 6.3cm with possibility of TOA. Her history of right flank pain and no complaint of pelvic pain and no pelvic pain on pelvic and abdominal exam indicate that this ovarian cyst may be an incidental finding, as would expect TOA to be symptomatic, painful both by history and tender on exam. This is leading FOREST TECHNOLOGY PROFESSOR to believe the patient's illness is likely related to the pyelonephritis picture, rather than from TOA. However, in the event that the ovarian cyst is a TOA, the current antibiotic regimen of IV Cefoxitin and doxycycline are an appropriate broad-spectrum coverage for tubo-ovarian abscess also. Typically, TOA less than 7cm should be adequately treated with IV antibiotics alone. If she does not see improvement with IV antibiotics, it may be worthwhile to consider IR drainage (would need to be done at a hospital that has interventional radiology services). Documented By: Bekah Hernandes, DO Subjective Patient seen at bedside this morning. Feels well overall. Endorses mild shoulder discomfort. Also notes her heparin shot yesterday was very painful. Other than this, patient has no complaints. Denies abdominal pain, nausea, vomiting, lightheadedness, dizziness, urinary symptoms, flank pain, or other symptoms at this time. Review of Systems Review of Systems: See HPI Physical Exam Physical Exam: Constitutional: well-appearing, no acute distress CV: regular rhythm, no murmur appreciated, extremities well-perfused Resp: CTABL, no wheezes/rales/rhonchi appreciated, no increased work of breathing GI: soft, nondistended, nontender, BS normoactive MSK: no flank tenderness Skin: warm, dry, no rash appreciated Neuro: AOx4, no focal neurological deficits appreciated Results & Data ([facility]) Vital Signs (Past 12 Hours) Vital Signs Temp Pulse Pulse Resp BP Pulse Ox 01/23/21 06:01 37.4 C 127 H 20 01/23/21 04:46 39.4 C H 136 H 20 01/23/21 03:57 39.4 C H 144 H 22 115/58 L 91 01/23/21 00:33 37.3 C 118 H 22 01/22/21 23:42 36.8 C 106 H 16 125/79 98 01/22/21 23:00 117 H 01/22/21 19:34 38.1 C H 134 H 18 109/53 L 94 PG Care Time/CCT Total # of Minutes Spent Total Time Spent with Patient: Total time spent is greater than 50% in coordination of care (as documented) at patient's floor/unit and/or counseling patient: Coding Level of Care Code 80427 Inpt Consult Level 2 Diagnoses Pyelonephritis N12 Complex cyst of uterine adnexa N83.8 Resident Activity Tracking Resident Involvement: Resident Care Provided Care Provided: OB Delivery
[2021-01-23 07:47] LABS: Basophils # (auto) 0.01 K/uL (0-0.2); Eosinophils # (auto) 0.01 K/uL (0-0.5); Immature Granulocytes # (auto) 0.13 K/uL (0.00-0.02); Immature Granulocytes % (auto) 0.6 %; Lymphocytes # (auto) 1.06 K/uL (1.2-3.4); Lymphocytes % (auto) 4.7 %; Monocytes # (auto) 1.95 K/uL (0.11-0.59); Monocytes % (auto) 8.6 %; Neutrophils % (auto) 86.1 %; RBC Morphology Unremarkable
[2021-01-23] MEDS: HEPARIN SOD 5,000 UNIT/0.5 ML VIAL SQ SCH ×2 (09:12→21:09)
--- NOTE | 2021-01-23 13:06 | Medical Student Progress Note ---
Date of Service January 23, 2021 Assessment & Plan (1) Pyelonephritis: 1. Acute Pyelonephritis Christy Santana is a 20-year-old female with a benign PMHx who presented to [facility] emergency department on 01/21/21 due to a three-day history of fever, chills, and abdominal pain. Abdominal/Pelvic CT performed in the ED revealed right-sided pyelonephritis as well as a left adnexal abscess suspicious for a tubo-ovarian abscess. Patient was admitted for treatment and further evaluation of both infection sources. * Abdominal/Pelvic CT performed on 01/21/21 showing right-sided pyelonephritis * Leukocytosis 30.05 on admission. Downtrended to 22.0 * Initiated IV Cefoxitin + Doxycycline. Antibiotic choice driven by concern for a tubo-ovarian abscess based on initial CT scan. However, antibiotic regimen will provide adequate coverage for pyelonephritis as well * 1/2 Blood Cultures positive for gram negative bacilli. * Urinalysis: 1+ leukocyte esterase, 5-10 WBCs, trace blood, 0-4 RBCs, negative bacteria on day of admission 2. Tubo-ovarian Abscess Abdominal/pelvic CT performed in emergency department revealed a left adnexal complex cyst suggestive of a TOA. Pelvic exam was performed but did not reveal adnexal tenderness or CMT. At this time, the TOA is believed to be unrelated to the patient's current infectious presentation and sepsis but the chosen antibiotic regimen will provide adequate coverage regardless. Patient will be appropriately managed for TOA and OBGYN has been consulted for their input regarding management and potential surgical intervention. * Abdominal/Pelvic CT showed left adnexal abscess suggestive of TOA * TVUS performed 01/22/21. Complex left adnexal mass measuring 40 x 29 x 38 mm with echogenic focus. Tubular fluid-filled 63 x 32 x 51 mm structure with low level echoes. Findings suggestive of tubo-ovarian abscess * OBGYN consult appreciated. If clinical improvement occurs with current treatment, no further treatment is indicated at this time. Recommend TVUS 6 weeks after discharge and potential IR drainage if cyst persists. OBGYN will continue to follow patient * Gonococcal and chlamydia PCR pending. If either is positive, screening for other STIs will follow. No further testing if negative for GC/CT 3. Sepsis Patient meets SIRS criteria with right-sided pyelonephritis as infectious source. * Hypotensive and tachycardic on 01/22/21 requiring 1 L NSS bolus x2 and 0.5 L NSS bolus x1. Received additional 1 L bolus on 01/23/21 early AM. Blood pressure has stabilized but patient remains tachycardic and febrile * Leukocytosis downtrending. * 1/2 blood cultures positive for gram negative rods which is consistent with urologic source of infection * Continue antibiotic treatment for pyelonephritis * Transition to medical floor without telemetry 4. Acute Kidney Injury Patient presented with lab findings suggestive of an intrarenal ARMANDO, which is likely secondary to pyelonephritis. Due to persistent hypotension, there may be a prerenal component as well. * Continue maintenance fluids * Daily BMP check Code Status: Full Code FEN: NSS maintenance fluds. Bolus as needed. Daily BMP and CBC. Normal diet VTE PPx: Heparin Dispo: Medical floor Admission and Anticipated Discharge Date Admission Date: January 22, 2021 Supervising Attestation Medical Student Supervision Note: I was personally present during medical student patient encounter and independently interviewed and examined the patient and verified the layne history and physical, reviewed labs and image studies, discussed the case with Aquiles Ramsey and agree with the findings and care plan. Gram Neg Sepsis POA sec to pyelonephritis Tubo-ovarian abscess - continuing to have fever. WBC better. continue IV antibiotics - ceftriaxone and doxy. Subjective Patient says that she had a fever of 103 degrees overnight with an episode of vomiting. She endorses poor sleep due to the fever and nausea. She states that she began to feel better after receiving a fluid bolus at 4:00 am. This morning, she has a good appetite and has tolerated food well this morning without N/V or abdominal pain. She also denies PALOMARES, fever, lightheadedness, shortness of breath, or chest pain at this time. Christy also notes that she experienced one episode of flank pain with urination last night. She has not had any recurrent episodes of this pain and she continues to deny urinary frequency or burning with urination. Review of Systems Constitutional: as per Subjective / HPI Respiratory: as per Subjective / HPI Cardiovascular: as per Subjective / HPI Gastrointestinal: as per Subjective / HPI Genitourinary: as per Subjective / HPI Neurologic: no problem reported Psychiatric: no problem reported Physical Exam Constitutional: WD/WN, vitals as above no acute distress Eyes: PERRL, conjunctivae normal, anicteric sclerae ENMT: external ear and nose normal, oropharynx normal Neck: normal visual inspection Respiratory: normal respiratory effort, lungs clear to auscultation Cardiovascular: RRR, no murmur, no edema Gastrointestinal (Abdomen): normal bowel sounds, soft, nontender, no hepatosplenomegaly Percussion/Palpation: abdomen nontender (No RUQ tenderness) Skin: no rashes, warm and dry Psychiatric: A+Ox3, euthymic affect Genitourinary: + CVA tenderness (Mild Right-sided CVA. Decreased compared to previous exam) Results & Data ([facility]) Vital Signs (Past 12 Hours) Vital Signs Temp Pulse Pulse Resp BP Pulse Ox 01/23/21 12:25 125 H 01/23/21 12:14 39.4 C H 137 H 19 146/86 H 96 01/23/21 11:29 37.9 C H 124 H 18 132/89 96 01/23/21 07:37 37.9 C H 130 H 16 127/76 92 01/23/21 06:01 37.4 C 127 H 20 01/23/21 04:46 39.4 C H 136 H 20 01/23/21 03:57 39.4 C H 144 H 22 115/58 L 91
[2021-01-23] MEDS: cefTRIAXone SODIUM 2,000 MG in DEXTROSE 5% 50 ML IV SCH (18:49)
[2021-01-24] MEDS: DOXYCYCLINE HYCLATE 100 MG in DEXTROSE 5% 100 ML IV SCH ×2 (06:10→18:10)
--- NOTE | 2021-01-24 07:32 | Gynecologic Progress Note ---
Date of Service January 24, 2021 Assessment & Plan (1) Pyelonephritis: Christy Santana is a 20yo female presenting with pyelonephritis and sepsis with two adnexal masses, differential includes +/- TOA, though patient symptomatically does not appear to have TOA, so symptoms likely represent pyelonephritis alone. Patient continues to improve on IV ceftriaxone and doxycycline. Fever has improved - has been afebrile since about 11pm last night. If patient's ovarian cyst represents TOA, patient is on appropriate antibiotic coverage, and medical therapy alone could adequately treat. If patient worsens, -VSS, afebrile since last night -continue current antibiotic regimen -if patient worsens, reimage and consider transfer to tertiary [facility], as TOA over 7cm would require either IR-guided drainage or surgical intervention -otherwise, follow-up ultrasound about six weeks after discharge -OBGYN will continue to follow Gurwinder Shay, PGY-1 Admission and Anticipated Discharge Date Admission Date: January 22, 2021 Supervising Physician Co-Signing Physician Notes Resident Physician Supervision Note: I interviewed and examined the patient. Discussed with Dr. Suarez and agree with findings and plan as documented in the note. Any exceptions or clarifications are listed here: [None] Documented By: Erum Hillman MD, FACOG Subjective Patient seen at bedside this morning. Feels well this morning, endorses continued nausea when eating but otherwise relatively asymptomatic. Sweating/feeling feverish has improved from yesterday. Endorses mild shoulder discomfort secondary to the hospital bed, continued from yesterday - otherwise reports no pain. Denies CP, SOB, lightheadedness, dizziness, urinary symptoms, flank pain, or other symptoms. Review of Systems Review of Systems: See HPI Physical Exam Physical Exam: Constitutional: well-appearing, no acute distress, laying in bed CV: regular rhythm, no murmur appreciated, extremities well-perfused Resp: CTABL, no increased work of breathing GI: soft, nondistended, nontender, BS present MSK: no flank tenderness Skin: warm, dry, no rash appreciated Results & Data ([facility]) Vital Signs (Past 12 Hours) Vital Signs Temp Pulse Pulse Resp BP Pulse Ox 01/24/21 06:28 37.0 C 109 H 16 135/88 99 01/24/21 04:25 37 C 01/24/21 00:02 37.2 C 01/23/21 23:05 92 H 01/23/21 22:58 37.8 C H 120 H 16 117/79 93 PG Care Time/CCT Total # of Minutes Spent Total Time Spent with Patient: Total time spent is greater than 50% in coordination of care (as documented) at patient's floor/unit and/or counseling patient: Coding Level of Care Code None Diagnoses Pyelonephritis N12 Resident Activity Tracking Resident Involvement: Resident Care Provided Care Provided: OB Delivery
[2021-01-24 07:58] LABS: Basophils # (auto) 0.02 K/uL (0-0.2); Basophils % (auto) 0.1 %; Eosinophils # (auto) 0.03 K/uL (0-0.5); Eosinophils % (auto) 0.2 %; Hematocrit (blood only) 30.1 % (37-47); Hemoglobin 10.4 g/dL (12.0-16.0); Immature Granulocytes % (auto) 0.7 %; Lymphocytes # (auto) 1.42 K/uL (1.2-3.4); Lymphocytes % (auto) 10.4 %; Mean Corpuscular Hemoglobin 30.5 pg (25-34); Mean Corpuscular Hgb Conc 34.6 g/dL (32-36); Mean Corpuscular Volume 88.3 fL (80-100); Mean Platelet Volume 10.4 fL (7.4-10.4); Monocytes # (auto) 1.64 K/uL (0.11-0.59); Neutrophils # (auto) 10.45 K/uL (1.4-6.5); Neutrophils % (auto) 76.6 %; Platelet Count 280 K/uL (130-400); RDW Coefficient of Variation 13.9 % (11.5-14.5); RDW Standard Deviation 45.1 fL (36.4-46.3); Red Blood Count 3.41 M/uL (4.2-5.4); White Blood Count 13.66 K/uL (4.8-10.8)
[2021-01-24 08:46] LABS: BUN Creatinine Ratio 9.8 (10-20); Calcium 8.9 mg/dl (8.5-10.1); Creatinine Clr Calc Pharmacy 76.2 ml/min; Est GFR (African American) 92.6; Est GFR (Non-African American) 79.9; Potassium 3.6 mmol/L (3.5-5.1)
[2021-01-24] MEDS: HEPARIN SOD 5,000 UNIT/0.5 ML VIAL SQ SCH (09:46)
[2021-01-24] MEDS: ENOXAPARIN INJ 40 MG/0.4 ML SYR SQ SCH (11:29)
--- NOTE | 2021-01-24 11:30 | Medical Student Progress Note ---
Date of Service January 24, 2021 Assessment & Plan (1) Pyelonephritis: 1. Acute Pyelonephritis Christy Santana is a 20-year-old female with a benign PMHx who presented to [facility] emergency department on 01/21/21 due to a three-day history of fever, chills, and abdominal pain. Abdominal/Pelvic CT performed in the ED revealed right-sided pyelonephritis as well as a left adnexal abscess suspicious for a tubo-ovarian abscess. Patient was admitted for treatment and further evaluation of both infection sources. * Abdominal/Pelvic CT performed on 01/21/21 showing right-sided pyelonephritis * Leukocytosis 30.05 on admission. Downtrended to 13.6 * Initiated IV Cefoxitin + Doxycycline. Antibiotic choice driven by concern for a tubo-ovarian abscess based on initial CT scan. However, antibiotic regimen will provide adequate coverage for pyelonephritis as well. Due to persistent fever spikes, antibiotic regimen modified to IV Ceftriaxone and Doxycycline on 01/23/21. * 1/2 Blood Cultures positive for Pansensitive E. coli. Continue current antibiotic regimen * If patient remains clinically stable, plan to discharge on oral antibiotic regimen once afebrile for >24 hours 2. Tubo-ovarian Abscess Abdominal/pelvic CT performed in emergency department revealed a left adnexal complex cyst suggestive of a TOA. Pelvic exam was performed but did not reveal adnexal tenderness or CMT. At this time, the TOA is believed to be unrelated to the patient's current infectious presentation and sepsis but the chosen antibiotic regimen will provide adequate coverage regardless. Patient will be appropriately managed for TOA and OBGYN has been consulted for their input regarding management and potential surgical intervention. * Abdominal/Pelvic CT showed left adnexal abscess suggestive of TOA * TVUS performed 01/22/21. Complex left adnexal mass measuring 40 x 29 x 38 mm with echogenic focus. Tubular fluid-filled 63 x 32 x 51 mm structure with low level echoes. Findings suggestive of tubo-ovarian abscess * OBGYN consult appreciated. If clinical improvement occurs with current treatment, no further treatment is indicated at this time. Recommend TVUS 6 weeks after discharge and potential IR drainage if cyst persists. OBGYN will continue to follow patient * Gonococcal and chlamydia PCR pending. If either is positive, screening for other STIs will follow. No further testing if negative for GC/CT 3. Sepsis Patient meets SIRS criteria with right-sided pyelonephritis as infectious source. * Hypotensive and tachycardic on 01/22/21 requiring 1 L NSS bolus x2 and 0.5 L NSS bolus x1. Received additional 1 L bolus on 01/23/21 early AM. Blood pressure has stabilized but patient remains tachycardic. * Leukocytosis downtrending. Afebrile since 11 pm on 01/23 * 1/2 blood cultures positive for E. coli which is consistent with urologic source of infection * Continue antibiotic treatment for pyelonephritis 4. Acute Kidney Injury Patient presented with lab findings suggestive of an intrarenal ARMANDO, which is likely secondary to pyelonephritis. Due to persistent hypotension, there may be a prerenal component as well. ARMANDO resolved on 01/24/21. * 01/24/21: BUN 10, Cr 1.00. Cr down from 1.48 on day of admission * Continue maintenance fluids * Daily BMP check Code Status: Full Code FEN: NSS maintenance fluds. Daily BMP and CBC. Normal diet VTE PPx: Heparin Dispo: Medical floor Admission and Anticipated Discharge Date Admission Date: January 22, 2021 Supervising Attestation Medical Student Supervision Note: I was personally present during medical student patient encounter and independently interviewed and examined the patient and verified the layne history and physical, reviewed labs and image studies, discussed the case with and agree with the findings and care plan. Continuing to have fever. will continue IV abx until fever free for 24hrs. Subjective Patient states that she feels well this morning and had a more comfortable night compared to the previous few nights. She was able to sleep well without nausea, vomiting, or flank pain. This morning, she does not endorse abdominal pain, dysuria, flank pain, shortness of breath, chest pain, fever, chills, or lower extremity pain or swelling. She did not have much of an appetite yesterday and she only ate chicken noodle soup for dinner. She has not yet eaten breakfast this morning but she says that her appetite has increased. She continues to endorse a burning sensation with heparin injection but she is able to tolerate it. Review of Systems 2 Constitutional: as per Subjective / HPI Eyes: no problem reported Ear, Nose, Mouth, Throat: no problem reported Respiratory: as per Subjective / HPI Cardiovascular: as per Subjective / HPI Gastrointestinal: + change in stools (loose stools) Genitourinary: as per Subjective / HPI Neurologic: + headache(s) (mainly at times of fever) Physical Exam Constitutional: WD/WN, vitals as above no acute distress Eyes: PERRL, conjunctivae normal, anicteric sclerae ENMT: external ear and nose normal, oropharynx normal Neck: normal visual inspection Respiratory: normal respiratory effort, lungs clear to auscultation Cardiovascular: RRR, no murmur, no edema Gastrointestinal (Abdomen): normal bowel sounds, soft, nontender, no hepatosplenomegaly Skin: no rashes, warm and dry Psychiatric: A+Ox3, euthymic affect Genitourinary: no CVA tenderness Results & Data ([facility]) Vital Signs (Past 12 Hours) Vital Signs Temp Pulse Pulse Resp BP BP Pulse Ox 01/24/21 07:58 37.4 C 125 H 18 137/89 96 01/24/21 06:28 37.0 C 109 H 16 135/88 99 01/24/21 04:25 37 C 01/24/21 00:02 37.2 C
[2021-01-24] MEDS: NSS + 20MEQ KCL 20 MEQ/1,000 ML BAG IV SCH (13:10)
[2021-01-24 15:36] LABS: Chlamydia Trach RNA NOT DETECTED (NOT DETECTED); GC (Neis gonorrhoeae) RNA NOT DETECTED (NOT DETECTED)
[2021-01-24] MEDS: ACETAMINOPHEN 325 MG TAB PO PRN (15:46)
[2021-01-24] MEDS: cefTRIAXone SODIUM 2,000 MG in DEXTROSE 5% 50 ML IV SCH (18:10)
[2021-01-25] MEDS: ACETAMINOPHEN 325 MG TAB PO PRN ×2 (00:46→14:54)
[2021-01-25] MEDS: NSS + 20MEQ KCL 20 MEQ/1,000 ML BAG IV SCH (01:54)
[2021-01-25] MEDS: DOXYCYCLINE HYCLATE 100 MG in DEXTROSE 5% 100 ML IV SCH (06:08)
[2021-01-25 07:32] LABS: Basophils # (auto) 0.01 K/uL (0-0.2); Basophils % (auto) 0.1 %; Eosinophils # (auto) 0.08 K/uL (0-0.5); Eosinophils % (auto) 0.8 %; Hematocrit (blood only) 31.7 % (37-47); Hemoglobin 10.7 g/dL (12.0-16.0); Immature Granulocytes # (auto) 0.15 K/uL (0.00-0.02); Immature Granulocytes % (auto) 1.5 %; Lymphocytes # (auto) 1.65 K/uL (1.2-3.4); Lymphocytes % (auto) 16.1 %; Mean Corpuscular Hgb Conc 33.8 g/dL (32-36); Mean Corpuscular Volume 88.8 fL (80-100); Monocytes # (auto) 1.32 K/uL (0.11-0.59); Monocytes % (auto) 12.9 %; Neutrophils # (auto) 7.02 K/uL (1.4-6.5); Neutrophils % (auto) 68.6 %; Platelet Count 263 K/uL (130-400); RDW Coefficient of Variation 13.9 % (11.5-14.5); RDW Standard Deviation 45.3 fL (36.4-46.3); Red Blood Count 3.57 M/uL (4.2-5.4); White Blood Count 10.23 K/uL (4.8-10.8)
--- NOTE | 2021-01-25 07:57 | Gynecologic Progress Note ---
Date of Service January 25, 2021 Assessment & Plan (1) Pyelonephritis: -Recommend continuation of patient's current treatment regimen and IV abx until afebrile x 24 hours. WBC continues to trend down today. Current antibiotic regimen would cover concern for pelvic infection though blood culture s and urine cultures of E. coli are consistent with pyelonephritis and GC/CT were neg -Pt reports that her mother has already made her an appt with [facility] in [place] as she is moving home since she is graduating. Recommended that she keep that appt in 6 wks to demonstrate resolution but that she can always contact us with any questions or concerns. -OBGYN will continue to follow Admission and Anticipated Discharge Date Admission Date: January 22, 2021 Subjective Feeling well this morning, is sad as her graduation is this evening at 6pm and she will likely miss it. Denies any flank or abdominal pain, no abnormal bleeding. Denies feeling the fever when she is found to have one, overall actually feels well. Did have fever last evening but again, asymptomatic during that time. Physical Exam Constitutional: WD/WN, vitals as above Respiratory: normal respiratory effort; no respiratory distress and no labored breathing Gastrointestinal (Abdomen): Inspection/Auscultation: abdomen normal to inspection; abdomen not distended Percussion/Palpation: abdomen soft; abdomen nontender, no guarding and abdomen not rigid Psychiatric: A+Ox3, euthymic affect Results & Data ([facility]) Vital Signs (Past 12 Hours) Vital Signs Temp Pulse Pulse Resp BP Pulse Ox 01/25/21 01:18 99.5 F 01/25/21 00:53 90 01/24/21 23:34 100.0 F H 114 H 16 130/77 98 PG Care Time/CCT Total # of Minutes Spent Total Time Spent with Patient: Total time spent is greater than 50% in coordination of care (as documented) at patient's floor/unit and/or counseling patient: Coding Level of Care Code 44372 Subseq Hosp Care Lvl 2 Diagnoses Pyelonephritis N12
[2021-01-25 08:18] LABS: Albumin Level 2.4 gm/dl (3.4-5.0); BUN Creatinine Ratio 9.7 (10-20); Calcium 8.9 mg/dl (8.5-10.1); Est GFR (African American) 133.3
[2021-01-25 08:20] LABS: Albumin Globulin Ratio 0.6 (0.9-2); Bilirubin,Total 0.8 mg/dl (0.2-1); Globulin 4.1 gm/dl (2.5-4.0); Total Protein 6.5 gm/dl (6.4-8.2)
[2021-01-25] MEDS: ENOXAPARIN INJ 40 MG/0.4 ML SYR SQ SCH (08:28)
--- NOTE | 2021-01-25 11:02 | Discharge Summary ---
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 disease), who presents from urgent care for evaluation of ongoing chills for 3 days as well as right-sided abdominal pain. She is accompanied by her roommate. She reports that on Wednesday, she noticed that she was having intermittent chills. As the week and continued, she also developed night sweats and fatigue, as well as a "stitch in her my right side." She attempted taking Tylenol and ibuprofen without much relief of her symptoms. Because of this, she did go to urgent care, anddue to the severity of her symptoms as well as her clinical presentationrecommended she come to the ER for prompt evaluation. She denies recent urinary frequency or urgency. No dysuria. She is sexually active with her boyfriend, who lives in [place]. Intermittently uses barrier contraception. No recent vaginal rashes / discharge / irritation. No history of STIs. LMP approx. 2 weeks ago. She denies nausea, vomiting. Diarrhea x 1 yesterday morning that since resolved. No hematochezia or melena. Socially, patient is a senior here at [employer]. She was starting [employer] when this all started. 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 Denies tobacco use. Social alcohol use. Denies recreational drug use. In the ER, she was noted to be febrile and tachycardic with right-sided RUQ-R fl ank pain. No CMT; mild vaginal discharge on exam. Leukocytosis to 30 and left shift with elevated procalc. CT-A/P demonstrating right pyelonephritis and rim- enhancing fluid-filled structure in L adnexal with a gas-fluid level c/w abscess, which was noted to be adjacent to smooth oval cystic structure in L adnexa. She was given 3L total of NSS alongside single doses of clindamycin and gentamycin. Admission Exam Per Admitting Provider General: Ill-appearing 20-year-old female who is lying back in her hospital bed upon my arrival. She is fully alert and oriented. She appears in mild distress. HEENT: NCAT. Eyes - Sclera are white, anicteric, and without injection. PERRL. EOMs display full ROM bilaterally. Mouth - MMM with no tonsillar edema or exudates. Cardiac: Tachycardic with regular rhythm; S1 and S2 present with no murmurs, rubs, or gallops. Pulmonary: Good respiratory effort with symmetric expansion of the chest. No use of accessory muscles. Lungs were clear to auscultation bilaterally with no crackles or wheezes. Abdominal: Normoactive bowel sounds. Abdomen was non-distended. TTP appreciated deep within the midaxillary line in the general vicinity of the RUQ/flank, not elsewhere. No masses. No rebound or guarding. No hepatomegaly or splenomegaly. Extremities: Upper and lower extremities are warm and well perfused. Radial and dorsalis pedis pulses were 2+ b/l. Capillary refill assessed in UE was < 3 sec. : Deferred given previous exam in ER Principal Diagnosis Pyelonephritis; Ovarian Cyst Discharge Exam Constitutional WD/WN, vitals as above cooperative and comfortable Eyes PERRL, conjunctivae normal, anicteric sclerae ENMT external ear and nose normal, oropharynx normal Neck trachea midline, no thyromegaly Respiratory normal respiratory effort, lungs clear to auscultation Cardiovascular RRR, no murmur, no edema Gastrointestinal (Abdomen) Percussion/Palpation: abdomen soft; abdomen nontender, no guarding and abdomen not rigid Musculoskeletal Head/Neck/Chest: normocephalic and head atraumatic Skin no rashes, warm and dry Neurologic moves all extremities and awake Psychiatric Orientation: alert and oriented x 3 tearful about possible missing graduation. Discharge Data Allergies Allergy/AdvReac Type Severity Reaction Status Date / Time Penicillins Allergy Severe ANAPHYLAXIS Verified 01/22/21 00:18 erythromycin base AdvReac Mild GI SYMPTOMS Verified 01/22/21 02:41 Consultations 01/21/21 23:16 Consult General Surgery Stat 01/21/21 23:17 Consult Gynecology Stat ED Decision to Admit Stat Ordered Studies 01/21/21 21:06 CT abd pelvis IV con only Urgent IMPRESSION: 1. Findings are consistent with ascending tract infection and right-sided pyelonephritis. Correlation with clinical findings and urinalysis will be required. 2. There is a gas and fluid containing collection the left adnexa, likely related to the left ovary as well as an indeterminant cystic structure. Findings are suspicious for hydrosalpinx and tubo-ovarian abscess. Clinical correlation will be required. Pelvic ultrasound may provide further information. 3. Trace pleural effusions. 4. A small volume of nonspecific free fluid is seen in the cul-de-sac. 5. Mildly enlarged retroperitoneal lymph nodes are likely reactive 01/21/21 21:50 CT angio chest PE protocol Urgent Trace Bilateral pleural effusions 01/21/21 22:22 US pelvic complete Urgent US transvaginal Urgent On transabdominal scanning, endovaginal scanning was performed to better assess the adnexal structures. The uterus measured 5.3 x 3 x 4.3 cm. The endometrial stripe measured 8 mm. The right ovary measured 40 x 26 x 27 mm The left ovary measured 45 x 41 x 46 mm. There is a 40 x 29 x 38 mm slightly echogenic left adnexal mass with foci of dirty shadowing possibly representing gas. As the adjacent fluid-filled structure measuring 63 x 32 x 51 mm with low- level echoes. The findings are suspicious for a tubo-ovarian abscess.. There was no evidence of pathologic free pelvic fluid. IMPRESSION: 1. Complex left adnexal mass consisting of a 40 x 29 x 38 mm echogenic focus with areas of dirty shadowing, as well as a somewhat tubular fluid-filled 63 x 32 x 51 mm structure with low level echoes. The findings are viewed as suspicious for a tubo-ovarian abscess. Clinical correlation in this regard is advocated Hospital Course (1) Pyelonephritis: Summary: Christy Santana is a 20-year-old female with a benign PMHx who presented to [facility] emergency department on 01/21/21 due to a three-day history of fever, chills, and abdominal pain. Abdominal/Pelvic CT performed in the ED revealed right-sided pyelonephritis leading to Sepsis (POA) as well as a left adnexal abscess suspicious for a tubo-ovarian abscess which was later diagnosed as complex uterine cyst,. - She was treated for Pyelonephritis with IV Abx for 4 days of Rocephin and Doxycycline IV. She remained afebrile for 24 hours with last fever on 01/24/21 at 3pm. Offending agent was Ni-sensitive E. coli. She will be discharged on Levaquin 750mg x 5 days. Levaquin was selected based on severity of illness requiring hospitalization and that Levaquin has good penetrance into the kidney and system. For tubo-ovarian swelling - PODIATRY PROFESSOR evaluated Christy and recommended she follow up with her PODIATRY PROFESSOR in [place] as she is relocating back home for follow up for complex uterine cyst. She was instructed to come back to hospital if experiencing worsening of symptoms. Christy was feeling well enough and she expressed desire to be discharged as college graduation is tonight at [employer]. (2) Complex cyst of uterine adnexa: (3) Sepsis: Total Time Total Time Spent Total Time Spent (In Minutes): 35 Discharge Plan Discharge Items Patient Disposition: Home - Self-Care Reason For Visit: PYELO Discharge Diagnosis: Pyelonephritis Activity: Resume your previous activity Non-emergency contact: Primary Care Provider Call non-emergency contact if: you have any medication questions Follow-up/Referrals: Robbi Phillips MD [Resident] - Diet: Regular Addtl Attending Provider Instructions: You were treated for a kidney infection called Pyelonephritis requiring IV antibiotics. Since you were free from fever for 24 hours and appear improved, we can accommodate discharge so you may attend your graduation. You will need to take an antibiotic called Levaquin 750mg, take one pill daily. You will take this medication for 7 days. Please avoid any athletic activity or exercise while on antibiotic as there is a small risk for tendon injury while on medication. There is risk that infection could return that requires IV antibiotics, if you feel worse and are concerned of worsening illness, please return to [facility] ED for re-evaluation. You will need to have outpatient follow up in our office. Contact information is provided for [facility] office. You may make an appointment with Dr. Phillips or myself Dr. Tatum or any other resident. It is important to follow up so we can ensure your antibiotics are working appropriately and that you are recovering. Please ensure proper rest while you recover. Get proper sleep, stay well hydrated, eat regular meals. Also, we agree with PODIATRY PROFESSOR's recommendations to follow up with your PODIATRY PROFESSOR physician for findings of complex left ovarian cyst. Please ensure that you follow up. Pending Studies at Discharge: No Stand-Alone Forms: [facility], Work/School Release (Inpt) Medications and DC Order Prescriptions: New levofloxacin 750 mg Tablet 750 mg PO DAILY 6 Days Qty: 6 RF: 0 Continued Sinus Allergy [place] 2 spray intranasal DAILY PRN (Reason: SINUS CONGESTION) RF: 0 Changed acetaminophen [Tylenol Extra Strength] 500 mg Tablet 1,000 mg PO Q8H PRN (Reason: Pain) Qty: 0 RF: 0 Discontinued ibuprofen [Advil] 200 mg Tablet 400 mg PO Q4 PRN (Reason: Pain) RF: 0 Discharge Orders: Discharge Order (Routine); Ordered 01/25/21 Ordered By: Zac Doss/Other Patient Handouts: Kidney Infec Dc, ED Pyelonephritis, Female (Adult) Admission Data Admit Date/Time: 01/22/21 01:08 Attending Provider: Kelsi Rogers Admit Provider: Ibrahima Lomeli Primary Care Provider: PCP,NO Other Providers: Abimael Pascal ; Dany Serna ; Dorothy Aguirre Other Interventions: Discharge Summary Assessment (RN) Last Done: 01/25/21 15:19 Supervising Physician Co-Signing Physician Notes Resident Physician Supervision Note: I independently interviewed and examined the patient and verified the layne history and physical, reviewed labs and image studies and agree with resident Dr. Tatum findings and care plan. Resident Activity Tracking Resident Involvement: Resident Care Provided Care Provided: Adult Hospital Medicine
[2021-01-25] MEDS ORDERED: levoFLOXacin 750 MG TAB PO SCH (14:00)
== END 2021-01-25 15:51 | disposition home or self-care (01) | DRG 872 ==
LOC: ED 20:08 → 2S 01-22 01:08 → SUATTDRO 01-22 01:08 → 2S 01-22 01:44 → 3N 01-23 11:43